=== PATIENT | female | born 1980 | race Caucasian/White ===

== ENCOUNTER 2016-07-12 12:13 | Emergency (ER) | payer SELFPAY ==
[~2016-07-12] VITALS: Ht 160 cm; Wt 82.0 kg
[2016-07-12 12:21] VITALS: BP 105/81; PULSE 85; RESP 16; TEMP 97.8; O2SAT 99
--- NOTE | 2016-07-12 12:39 | PD ---
HPI Chief Complaint: Flank/Kidney Pain Time Seen by Provider: 12:25 Travel History International Travel<30 days: No Contact w/Intl Traveler<30days: No Traveled to known affect area: No History of Present Illness HPI The patient was seen and examined in the presence of the nurse. She complains of right flank pain. It radiates toward the right groin. Duration one week. She has had some dysuria. No documented fever. She took an oral thermometer yesterday which was 99.3. No vomiting or diarrhea. No alleviating factors. No injury. PFSH Past Medical History ?: Not LMP: JUNE 28 Social History Alcohol Use: No Tobacco Use: No Substance Use: No Allergies-Medications (Allergen,Severity, Reaction): Coded Allergies: Penicillin (Verified Allergy, Unknown, 07/12/16) Reported Meds & Prescriptions Reported Meds & Active Scripts Active No Active Prescriptions or Reported Medications Review of Systems General / Constitutional: No: Fever Eyes: No: Visual changes HENT: No: Headaches Cardiovascular: No: Chest Pain or Discomfort Respiratory: No: Shortness of Breath Gastrointestinal: No: Diarrhea Genitourinary: Positive: Dysuria, Flank Pain Musculoskeletal: No: Pain Skin: No Rash Neurologic: No: Weakness Psychiatric: No: Depression Endocrine: No: Polydipsia Hematologic/Lymphatic: No: Easy Bruising Physical Exam Narrative GENERAL: Well-nourished, well-developed patient with right flank pain. SKIN: Focused skin assessment reveals no rash and nodules. Skin is Warm and dry. HEAD: Atraumatic. Normocephalic. EYES: Pupils equal and round. No scleral icterus. No injection or drainage. ENT: No nasal bleeding or discharge. Mucous membranes pink and moist. NECK: Trachea midline. No JVD. CARDIOVASCULAR: Regular rate and rhythm. No murmur appreciated. RESPIRATORY: No accessory muscle use. Clear to auscultation. Breath sounds equal bilaterally. GASTROINTESTINAL: Abdomen soft, non-tender, nondistended. Hepatic and splenic margins not palpable. MUSCULOSKELETAL: No obvious deformities. No clubbing. No cyanosis. No edema. Examination of back reveals markedly tenderness over the right CVA region to light touch. No midline tenderness. No objective findings NEUROLOGICAL: Awake and alert. No obvious cranial nerve deficits. Motor grossly within normal limits. Normal speech. PSYCHIATRIC: Appropriate mood and affect; insight and judgment normal. Data Data Last Documented VS Vital Signs Date Time Temp Pulse Resp B/P Pulse Ox O2 Delivery O2 Flow Rate FiO2 07/12/16 14:50 64 16 118/83 100 Room Air 07/12/16 12:21 97.8 Orders Urinalysis - C+S If Indicated (07/12/16 12:33) Ed Urine Pregnancytest Poc (07/12/16 12:33) Urine Culture (07/12/16 12:40) Ct Abd/Pel W/O Iv Contrast (07/12/16 ) Ondansetron Inj (Zofran Inj) (07/12/16 14:15) Morphine Inj (Morphine Inj) (07/12/16 14:15) Labs Laboratory Tests Test 07/12/16 12:40 Urine Collection Type CLEAN CATCH Urine Color YELLOW Urine Turbidity SLIGHT Urine pH 5.5 Urine Specific [place] 1.026 Urine Protein NEG mg/dL Urine Glucose (UA) 1000 OR GREATER mg/dL Urine Ketones NEG mg/dL Urine Occult Blood NEG Urine Nitrite POS Urine Bilirubin NEG Urine Leukocyte Esterase NEG Urine WBC 0-2 /hpf Urine Squamous Epithelial > 8 /hpf Cells Urine Bacteria MANY /hpf Microscopic Urinalysis Comment CULTURE INDICATED Urine Collection Time 12:40 [facility] Medical Decision Making Medical Screen Exam Complete: Yes Emergency Medical Condition: Yes Medical Record Reviewed: Yes Differential Diagnosis Pyelonephritis, sciatica, lumbar strain Narrative Course I have reviewed the patient's electronic medical record. She has never been here before she recently moved from [place] I offered her pain medication but she declines Urinalysis not suspicious for significant infection Urine is negative CT of abdomen pelvis is noted. 2 mm nonobstructing stone is an incidental finding. She is constipated but no emergent findings Reviewed with the patient. Recommending primary care follow-up to start Diagnosis Primary Impression: Acute right flank pain Additional Instructions: The patient was advised to follow up with their physician and return if they worsen. Med/Other Pt SpecificInfo: Other Scripts No Active Prescriptions or Reported Meds Disposition: 01 DISCHARGE HOME Condition: Stable Adolfo Membreno MD July 12, 2016 12:39
[2016-07-12 12:45] LABS: BLOOD, URINE NEG (NEG); KETONE, URINE NEG (NEG); PH, URINE 5.5 (5.0-8.5)
[2016-07-12 12:53] LABS: GLUCOSE,URINE 1000 OR GREATER mg/dL (NEG); METHOD OF COLLECTION CLEAN CATCH; NITRITE,URINE POS (NEG); SQUAMOUS EPITHELIAL CELL URINE > 8 /hpf (0-5); URINE COLOR YELLOW (YELLW/STRAW); WBC, URINE 0-2 /hpf (0-5)
[2016-07-12 12:54] LABS: BACTERIA, URINE MANY /hpf; COMMENT (UR) CULTURE INDICATED; CULTURE IF INDICATED CULTURE INDICATED
[2016-07-12 13:45] VITALS: BP 104/67; PULSE 68; RESP 16; O2SAT 99
[2016-07-12] MEDS ORDERED: ONDANSETRON HCL 4 MG/2 ML VIAL IM ONE (14:15)
[2016-07-12] MEDS ORDERED: MORPHINE SULFATE 4 MG/ML INJ IM ONE (14:15)
[2016-07-12 14:50] VITALS: BP 118/83; PULSE 64; RESP 16; O2SAT 100
--- NOTE | 2016-07-12 16:09 | RADHPO ---
EXAM DATE/TIME: 07/12/2016 14:22 [facility] COMPARISON: No previous studies available for comparison. INDICATIONS : Right flank pain. ORAL CONTRAST: No oral contrast ingested. RADIATION DOSE: 19.14 CTDIvol (mGy) MEDICAL HISTORY : None SURGICAL HISTORY : Appendectomy. Cholecystectomy. section.Bladder repair. ENCOUNTER: Initial ACUITY: 1 week PAIN SCALE: 7/10 LOCATION: Right flank TECHNIQUE: Volumetric scanning of the abdomen and pelvis was performed. Using automated exposure control and ad justment of the mA and/or kV according to patient size, radiation dose was kept as low as reasonably achievable to obtain optimal diagnostic quality images. FINDINGS: Examination of the lung bases demonstrates no abnormality. No pleural fluid is identified. No pulmona ry nodules are present. The liver and spleen are normal in size and no focal defects are identified. The gallbladder is absent. The pancreas demonstrates normal contour without evidence of mass or ducta l dilatation. The adrenal glands are unremarkable. The left kidney is unremarkable. There is cortical scarring in the right kidney with loss of the anterior cortex and a 2 mm nonobstructing stone in low er pole. Examination of the pelvis demonstrates no evidence of free fluid or pelvic mass. No abnormally enlarg ed inguinal or retroperitoneal lymph nodes are present. The bladder is unremarkable. There is a large amount of fecal material throughout the colon consistent with constipation. CONCLUSION: 1. No evidence of acute abdominal or pelvic process. No masses are identified. 2. Constipation 3. Nonobstructing 2 mm right renal stone Neri Hodge MD on July 12, 2016 at 15:59 Board Certified Radiologist. This report was verified electronically.
== END 2016-07-12 16:35 | disposition home or self-care (01) ==
LOC: PHED 12:13
DX: R10.9 Unspecified abdominal pain (principal); B96.20 Unspecified Escherichia coli [E. coli] as the cause of diseases classified elsewhere; Z88.0 Allergy status to penicillin
CPT/HCPCS: 74176; 81001; 84703; 87077; 87086; 87186; 96372; 99284; J2270; J2405

== ENCOUNTER 2016-08-14 06:48 | Inpatient (IN) | payer SELFPAY ==
[~2016-08-14] VITALS: Ht 167.6 cm; Wt 84.7 kg
[2016-08-14] VITALS (15 sets, daily range): BP systolic 98–123; BP diastolic 59–81; PULSE 74–106; RESP 18–27; TEMP 97.1–98.9; O2SAT 96–100
[2016-08-14] MEDS ORDERED: ONDANSETRON HCL 4 MG/2 ML VIAL IV PUSH ONE (07:00)
[2016-08-14] MEDS ORDERED: SODIUM CHLORIDE 0.9% FLUSH 5 ML FLUSH IV FLUSH PRN (07:00)
[2016-08-14] MEDS: SODIUM CHLOR 0.9% 1000 ML INJ 1,000 ML IV SCH ×2 (07:12→07:14)
[2016-08-14 07:18] LABS: BLOOD GAS BASE EXCESS -5.5 mmol/L (-2-2); BLOOD GAS CARBOXYHEMOGLOBIN 4.3 % (0-4); BLOOD GAS HCO3 19 mmol/L (22-26); BLOOD GAS METHEMOGLOBIN 0.9 % (0-2); BLOOD GAS O2 HGB SATURATION 92 % (90-100); BLOOD GAS OXYGEN CONTENT 17.2 Vol % (12.0-20.0); BLOOD GAS PCO2 35 mmHg (38-42); BLOOD GAS PO2 100 mmHG (61-120); BLOOD GAS TOTAL HGB 13.2 G/DL (12.0-16.0); CRITICAL VALUE NO; DRAW SITE RT RADIAL; LITER FLOW 3 L/M; NUMBER OF ARTERIAL PUNCTURES 1; OXYGEN DEVICE NASAL CANNULA; STAT YES; TEMP CORR TO 98.6; ULNAR PULSE PRESENT
[2016-08-14 07:28] LABS: AUTOMATED NEUTROPHIL # 5.5 TH/MM3 (1.8-7.7); BASOPHIL # 0.1 TH/MM3 (0-0.2); BASOPHIL % 1.3 % (0.0-2.0); EOSINOPHIL # 0.3 TH/MM3 (0-0.4); HEMATOCRIT 39.3 % (35.0-46.0); HEMO FLAGS DIFF FINAL; LYMPH % 31.5 % (9.0-44.0); MEAN CELL VOLUME 89.6 FL (80.0-100.0); MEAN CORPUSCULAR HEMOGLOBIN 31.3 PG (27.0-34.0); MEAN CORPUSCULAR HGB CONC 34.9 % (32.0-36.0); NEUT % 57.2 % (16.0-70.0); PLATELET COUNT 246 TH/MM3 (150-450); RED BLOOD COUNT 4.38 MIL/MM3 (4.00-5.30); RED CELL DISTRIBUTION WIDTH 13.2 % (11.6-17.2); WHITE BLOOD COUNT 9.7 TH/MM3 (4.0-11.0)
--- NOTE | 2016-08-14 07:38 | PD ---
HPI Chief Complaint: altered mental status Time Seen by Provider: 06:58 Travel History International Travel<30 days: No (UNABLE TO ASSESS) Contact w/Intl Traveler<30days: No (UNABLE TO ASSESS) Traveled to known affect area: No (UNABLE TO ASSESS) History of Present Illness HPI The patient arrives by EMS. She is 36 years old. Per EMS report she walked into a fitness center and told the space systems operations manager that she didn't know where she was. EMS was activated and upon their arrival the patient became unresponsive. Her blood sugar was 103 and her vital signs were normal. In the ER the patient does not answer questions limiting the history of present illness. PFSH Past Medical History Patient Takes Glucophage: No Diminished Hearing: No Immunizations Current: No Tetanus Vaccination: Unknown Influenza Vaccination: No ?: Unknown : 3 Para: 3 Past Surgical History Appendectomy: Yes Section: Yes (X 3) Cholecystectomy: Yes Genitourinary Surgery: Yes (BLADDER REPAIR) Social History Alcohol Use: No (UNKNOWN) Tobacco Use: No Substance Use: No (UNKNOWN ) Allergies-Medications (Allergen,Severity, Reaction): Coded Allergies: Penicillin (Verified Allergy, Unknown, 08/14/16) *MDRO Multi-Drug Resistant Organism (Verified Adverse Reaction, Unknown, ) ESBL E.Coli (urine)-07/12/16 Reported Meds & Prescriptions Reported Meds & Active Scripts Active Review of Systems ROS Limitations: Clinical Condition Physical Exam Narrative GENERAL: 36 yo F, WNWD, pt does open eyes in response to voice or noxious stimulus, pt does not speak, upon letting go of her hand a few inches above her forehead she is able to redirect the hand away from her face SKIN: Warm and dry. HEAD: Atraumatic. Normocephalic. EYES: Pupils are equally reactive to light. With passive opening of the upper eyelids the patient gazes from left to right and up and down. ENT: No nasal bleeding or discharge. Mucous membranes pink and moist. NECK: Trachea midline. No JVD. CARDIOVASCULAR: Regular rate and rhythm. RESPIRATORY: No accessory muscle use. Clear to auscultation. Breath sounds equal bilaterally. GASTROINTESTINAL: Abdomen soft, non-tender, nondistended. Hepatic and splenic margins not palpable. MUSCULOSKELETAL: Extremities without clubbing, cyanosis, or edema. No obvious deformities. NEUROLOGICAL: Non-verbal. Pt does not speak. Pt voluntarily disallows her hand from falling upon her forehead. The eyes have a conjugate gaze and upon passive opening of the gaze the patients gaze shifts from side to side and up and down. Pupils equal and reactive to light. PSYCHIATRIC: Unable to assess. Data Data Last Documented VS Vital Signs Date Time Temp Pulse Resp B/P Pulse Ox O2 Delivery O2 Flow Rate FiO2 08/14/16 09:30 82 21 115/62 99 Nasal Cannula 3 08/14/16 06:52 98.9 VS reviewed Orders Electrocardiogram (08/14/16 06:58) Ammonia (08/14/16 06:58) Complete Blood Count With Diff (08/14/16 06:58) Comprehensive Metabolic Panel (08/14/16 06:58) Thyroid Stimulating Hormone (08/14/16 06:58) Urinalysis - C+S If Indicated (08/14/16 06:58) Lactic Acid Sepsis Protocol (08/14/16 06:58) Arterial Blood Gas (Abg) (08/14/16 06:58) Blood Culture (08/14/16 06:58) Chest, Single Ap (08/14/16 06:58) Ct Brain W/O Iv Contrast(Rout) (08/14/16 06:58) Blood Glucose (08/14/16 06:58) Ecg Monitoring (08/14/16 06:58) Iv Access Insert/Monitor (08/14/16 06:58) Cath For Specimen (08/14/16 06:58) Oximetry (08/14/16 06:58) Oxygen Administration (08/14/16 06:58) Sodium Chloride 0.9% Flush (Ns Flush) (08/14/16 07:00) Sodium Chlor 0.9% 1000 Ml Inj (Ns 1000 M (08/14/16 06:58) Ed Urine Pregnancytest Poc (08/14/16 06:58) Drug Screen, Random Urine (08/14/16 06:58) Alcohol (Ethanol) (08/14/16 06:58) Salicylates (Aspirin) (08/14/16 06:58) Tylenol (Acetaminophen) (08/14/16 06:58) Ondansetron Inj (Zofran Inj) (08/14/16 07:00) Urine Culture (08/14/16 07:05) Ceftriaxone Inj (Rocephin Inj) (08/14/16 08:00) Potassium Chlor 20 Meq Premix (Kcl 20 Me (08/14/16 08:00) Admit Order (Ed Use Only) (08/14/16 10:21) Labs Laboratory Tests Test 08/14/16 08/14/16 07:00 07:05 Lactic Acid Level 2.1 mmol/L Ammonia 34 MCMOL/L White Blood Count 9.7 TH/MM3 Red Blood Count 4.38 MIL/MM3 Hemoglobin 13.7 GM/DL Hematocrit 39.3 % Mean Corpuscular Volume 89.6 FL Mean Corpuscular Hemoglobin 31.3 PG Mean Corpuscular Hemoglobin 34.9 % Concent Red Cell Distribution Width 13.2 % Platelet Count 246 TH/MM3 Mean Platelet Volume 9.3 FL Neutrophils (%) (Auto) 57.2 % Lymphocytes (%) (Auto) 31.5 % Monocytes (%) (Auto) 7.0 % Eosinophils (%) (Auto) 3.0 % Basophils (%) (Auto) 1.3 % Neutrophils # (Auto) 5.5 TH/MM3 Lymphocytes # (Auto) 3.0 TH/MM3 Monocytes # (Auto) 0.7 TH/MM3 Eosinophils # (Auto) 0.3 TH/MM3 Basophils # (Auto) 0.1 TH/MM3 CBC Comment DIFF FINAL Differential Comment Urine Color YELLOW Urine Turbidity CLOUDY Urine pH 5.5 Urine Specific [place] 1.014 Urine Protein NEG mg/dL Urine Glucose (UA) NEG mg/dL Urine Ketones NEG mg/dL Urine Occult Blood MOD Urine Nitrite POS Urine Bilirubin NEG Urine Urobilinogen LESS THAN 2.0 MG/DL Urine Leukocyte Esterase NEG Urine RBC 24 /hpf Urine WBC 5 /hpf Urine Squamous Epithelial 10 /hpf Cells Urine Bacteria MANY /hpf Urine Hyaline Casts 1 /lpf Urine Mucus FEW /lpf Microscopic Urinalysis Comment CATH-CULTURE IND Blood Gas Puncture Site RT RADIAL Blood Gas Patient Temperature 98.6 Blood Gas HCO3 19 mmol/L Blood Gas Base Excess -5.5 mmol/L Blood Gas Oxygen Saturation 92 % Arterial Blood pH 7.36 Arterial Blood Partial 35 mmHg Pressure CO2 Arterial Blood Partial 100 mmHG Pressure O2 Arterial Blood Oxygen Content 17.2 Vol % Arterial Blood 4.3 % Carboxyhemoglobin Arterial Blood Methemoglobin 0.9 % Blood Gas Hemoglobin 13.2 G/DL Oxygen Delivery Device NASAL CANNULA Blood Gas Liter Flow 3 L/M Sodium Level 141 MEQ/L Potassium Level 3.1 MEQ/L Chloride Level 108 MEQ/L Carbon Dioxide Level 19.7 MEQ/L Anion Gap 13 MEQ/L Blood Urea Nitrogen 17 MG/DL Creatinine 1.02 MG/DL Estimat Glomerular Filtration 61 ML/MIN Rate Random Glucose 85 MG/DL Calcium Level 8.3 MG/DL Total Bilirubin 0.3 MG/DL Aspartate Amino Transf 18 U/L (AST/SGOT) Alanine Aminotransferase 26 U/L (ALT/SGPT) Alkaline Phosphatase 95 U/L Total Protein 7.8 GM/DL Albumin 3.7 GM/DL Thyroid Stimulating Hormone 1.860 uIU/ML 3rd Gen Salicylates Level 2.1 MG/DL Urine Opiates Screen NEG Acetaminophen Level LESS THAN 2.0 MCG/ML Urine Barbiturates Screen NEG Urine Amphetamines Screen POS Urine Benzodiazepines Screen NEG Urine Cocaine Screen POS Urine Cannabinoids Screen POS Ethyl Alcohol Level 173 MG/DL MDM Medical Decision Making Medical Screen Exam Complete: Yes Emergency Medical Condition: Yes Differential Diagnosis Stroke, alcohol intoxication, illicit drug abuse, prescription drug abuse, hypoglycemia, electrolyte imbalance, infection/meningitis Narrative Course CBC & BMP Diagram 08/14/16 07:05 ABG 7.36/35/19 ABG PO2 103 L nasal cannula base excess -5.5 Lactic acid 2.1 Ammonia 34 APAP < 2.0 Salicylates 2.1 Urine Tox: positive for amphetamines/cocaine/cannabinoids LFTs essentially normal UA: UTI present CXR: NACPD ECG: sinus rate 93, normal axis, normal intervals, low QRS voltage in precordial leads As we can see the workup is positive for amphetamines, cocaine and cannabinoids and alcohol all of which together can account for the patient's clinical status. Reassessment at 1010AM gag reflex intact, VS normal. IVF started. Rocephin given. The patient will be kept for monitoring. Discussed with Dr. Simmons. Diagnosis Primary Impression: Alcohol intoxication Qualified Code: F10.929 - Alcohol intoxication, with unspecified complication Additional Impressions: Intoxication by drug Qualified Code: F19.929 - Intoxication by drug, with unspecified complication Nutrition, metabolism, and development symptoms UTI (urinary tract infection) Qualified Code: N30.00 - Acute cystitis without hematuria Admitting Information Admitting Physician Requests: Admit Jaren Feldman MD 19, 2017 07:38
[2016-08-14 07:41] LABS: BACTERIA, URINE MANY /hpf; BLOOD, URINE MOD (NEG); COMMENT (UR) CATH-CULTURE IND; CULTURE IF INDICATED CATH CULTURE IND; GLUCOSE,URINE NEG (NEG); HYALINE CAST, URINE 1 /lpf (RARE); KETONE, URINE NEG (NEG); MUCUS URINE FEW /lpf (OCC); PH, URINE 5.5 (5.0-8.5); SQUAMOUS EPITHELIAL CELL URINE 10 /hpf (0-5); URINE COLOR YELLOW (YELLW/STRAW)
[2016-08-14 07:42] LABS: ANION GAP 13 MEQ/L (5-15); AST (GOT) 18 U/L (15-37); BICARBONATE 19.7 MEQ/L (21.0-32.0); BLOOD UREA NITROGEN 17 MG/DL (7-18); CHLORIDE 108 MEQ/L (98-107); GLOMERULAR FILTRATION RATE 61 ML/MIN (>89); NITRITE,URINE POS (NEG); POTASSIUM 3.1 MEQ/L (3.5-5.1); SODIUM (NA) 141 MEQ/L (136-145)
[2016-08-14 07:43] LABS: ACETAMINOPHEN LESS THAN 2.0 MCG/ML (10.0-30.0); ALT (GPT) 26 U/L (10-53)
[2016-08-14 07:53] LABS: ALKALINE PHOSPHATASE 95 U/L (45-117); AMPHETAMINE, URINE POS (NEG); BARBITURATES, URINE NEG (NEG); COCAINE, URINE POS (NEG); TOTAL BILIRUBIN ADULT 0.3 MG/DL (0.2-1.0)
[2016-08-14] MEDS ORDERED: POTASSIUM CHLOR 20 MEQ PREMIX 100 ML IV ONE (08:00)
[2016-08-14] MEDS ORDERED: cefTRIAXone INJ 1,000 MG in SODIUM CHLORIDE 0.9% INJ 100 ML IV ONE (08:00)
--- NOTE | 2016-08-14 08:04 | RADRPT ---
EXAM DATE/TIME: 08/14/2016 07:35 [facility] COMPARISON: No previous studies available for comparison. INDICATIONS : Shortness of breath. MEDICAL HISTORY : None. SURGICAL HISTORY : None. ENCOUNTER: Initial ACUITY: 1 day PAIN SCORE: Non-responsive. LOCATION: Bilateral chest FINDINGS: Lungs are hypoaerated without significant focal pleural or parenchymal opacities. Cardiomediastinal c ontours are within normal limits given portable technique and low lung volumes. Bony thorax is grossl y intact. CONCLUSION: 1. Low lung volumes without acute cardiopulmonary disease. Ridge Lawson MD on August 14, 2016 at 8:01 Board Certified Radiologist. This report was verified electronically.
--- NOTE | 2016-08-14 08:29 | RADRPT ---
EXAM DATE/TIME: 08/14/2016 08:13 [facility] COMPARISON: No previous studies available for comparison. INDICATIONS : Altered mental status/ syncopal episode. RADIATION DOSE: 56.38 CTDIvol (mGy) MEDICAL HISTORY : Non-responsive. SURGICAL HISTORY : Non-responsive. ENCOUNTER: Initial ACUITY: 1 day PAIN SCALE: 0/10 LOCATION: cranial TECHNIQUE: Multiple contiguous axial images were obtained of the head. Using automated exposure control and adj ustment of the mA and/or kV according to patient size, radiation dose was kept as low as reasonably a chievable to obtain optimal diagnostic quality images. FINDINGS: CEREBRUM: The ventricles are normal for age. No evidence of midline shift, mass lesion, hemorrhage or acute in farction. No extra-axial fluid collections are seen. POSTERIOR FOSSA: The cerebellum and brainstem are intact. The 4th ventricle is midline. The cerebellopontine angle i s unremarkable. EXTRACRANIAL: The visualized portion of the orbits is intact. SKULL: The calvaria is intact. No evidence of skull fracture. CONCLUSION: Negative for an acute process. Gee Bourgeois MD FACR on August 14, 2016 at 8:27 Board Certified Radiologist. This report was verified electronically.
[2016-08-14 09:14] LABS: LACTIC ACID GHOST NOT REPORTABLE
[2016-08-14] MEDS ORDERED: ONDANSETRON HCL 4 MG/2 ML VIAL IV PUSH PRN (10:45)
[2016-08-14] MEDS ORDERED: LORazepam 2 MG TAB PO PRN (10:45)
[2016-08-14] MEDS ORDERED: FLUMAZENIL 0.5 MG/5 ML VIAL IV PUSH PRN (10:45)
[2016-08-14] MEDS ORDERED: LOPERAMIDE HCL 2 MG CAP PO PRN (10:45)
[2016-08-14] MEDS ORDERED: HALOPERIDOL LACTATE 5 MG/ML AMP IM PRN (10:45)
[2016-08-14] MEDS ORDERED: LORazepam 2 MG/ML VIAL IV PUSH PRN (10:45)
[2016-08-14] MEDS ORDERED: SODIUM CHLORIDE 0.9% FLUSH 10 ML FLUSH IV FLUSH PRN (10:45)
[2016-08-14] MEDS ORDERED: BENZONATATE 100 MG CAP PO PRN (10:45)
[2016-08-14] MEDS ORDERED: RESP: ALBUTEROL 2.5 MG/3 ML NEB (PRN) INH (10:45)
[2016-08-14] MEDS ORDERED: DOCUSATE SODIUM 50 MG/SENNA 8.6 MG TAB PO PRN (10:45)
--- NOTE | 2016-08-14 10:45 | HHI.HP ---
HPI Service Family Medicine Primary Care Physician No Primary Care Physician Admission Diagnosis PSA, EtOH Diagnoses: International Travel<30 Days: No (UNABLE TO ASSESS) Contact w/Intl Traveler<30days: No (UNABLE TO ASSESS) Known Affected Area: No (UNABLE TO ASSESS) History of Present Illness Per chart review, Ms. Drake is a 36 y/o F with no significant PMHx per chart review presenting via EMS for AMS. Per EMS, patient walked into a fitness center this morning and did not know where she was. The fitness center staff called EMS and was unresponsive on arrival. At the scene her BG was 103 with normal vital signs. Upon evaluation of both the ER staff and the admitting medical team she is unresponsive verbal, tactile, and painful stimulation. Her vital signs are currently WNL. Of note on laboratory evaluation patient found to be positive for amphetamines, cocaine, and marijuana with an alcohol of 173. She also appears to have a continued UTI from a previous ER visit for flank pain. Prior culture positive for ESBL E. coli on 07/13/15 and received only one dose of Ceftriaxone. (Neil Tejada MD R1) Review of Systems ROS Limitations: Intoxication, Altered Mental Status, Unresponsive (Neil Tejada MD R1) Past Family Social History Past Medical History No significant PMHx per chart review Past Surgical History Per chart review Appendectomy x3 Cholecystectomy Bladder repair (Neil Tejada MD R1) Allergies: Coded Allergies: Penicillin (Verified Allergy, Unknown, Rash, 08/14/16) Has tolerated Keflex in the past *MDRO Multi-Drug Resistant Organism (Verified Adverse Reaction, Unknown, ) ESBL E.Coli (urine)-07/12/16 Family History No significant FMHx per chart review Social History Unable to be obtained due to clinical status Positive drug scree on this admission for marijuana, cocaine, and amphetamines. Alcohol level of 173 on admission. (Neil Tejada MD R1) Physical Exam Vital Signs Vital Signs Date Time Temp Pulse Resp B/P Pulse Ox O2 Delivery O2 Flow Rate FiO2 08/14/16 09:30 82 21 115/62 99 Nasal Cannula 3 08/14/16 08:30 86 22 98 Nasal Cannula 3 08/14/16 07:30 83 24 114/73 99 Nasal Cannula 3 08/14/16 07:10 25 98 Nasal Cannula 3 08/14/16 07:02 100 Nasal Cannula 3 08/14/16 07:01 18 98 Nasal Cannula 3 08/14/16 06:52 98.9 106 20 123/81 98 Physical Exam GENERAL: Well-nourished, well-developed 36-year-old female lying in bed not responding to verbal, tactile, or painful stimulation. SKIN: Warm and dry. No rash. Multiple tattoos. HEENT: Atraumatic, normocephalic. Upon passively opening eyelids PERRL. Upon opening eyelids, patient gazes upward. Mucous membranes dry. Gag reflex intact. Trachea midline with no JVD or LAD appreciated. CARDIOVASCULAR: Regular rate and rhythm without obvious murmurs, gallops, or rubs. RESPIRATORY: Clear to auscultation bilaterally with with shallow air movement. No CRW appreciated. No increased work of breathing. GASTROINTESTINAL: Abdomen soft, non-tender, nondistended with positive bowel sounds. No hepatosplenomegaly appreciated. MUSCULOSKELETAL: No cyanosis or edema. No obvious deformities. NEURO/PSYCH: Patient is unresponsive to tactile, verbal, or painful stimulation. PERRL. On hand drop, she moves hand so it will not hit her face. Laboratory Laboratory Tests Test 08/14/16 08/14/16 07:00 07:05 Lactic Acid Level 2.1 Ammonia 34 White Blood Count 9.7 Red Blood Count 4.38 Hemoglobin 13.7 Hematocrit 39.3 Mean Corpuscular Volume 89.6 Mean Corpuscular Hemoglobin 31.3 Mean Corpuscular Hemoglobin 34.9 Concent Red Cell Distribution Width 13.2 Platelet Count 246 Mean Platelet Volume 9.3 Neutrophils (%) (Auto) 57.2 Lymphocytes (%) (Auto) 31.5 Monocytes (%) (Auto) 7.0 Eosinophils (%) (Auto) 3.0 Basophils (%) (Auto) 1.3 Neutrophils # (Auto) 5.5 Lymphocytes # (Auto) 3.0 Monocytes # (Auto) 0.7 Eosinophils # (Auto) 0.3 Basophils # (Auto) 0.1 CBC Comment DIFF FINAL Differential Comment Urine Color YELLOW Urine Turbidity CLOUDY Urine pH 5.5 Urine Specific [place] 1.014 Urine Protein NEG Urine Glucose (UA) NEG Urine Ketones NEG Urine Occult Blood MOD Urine Nitrite POS Urine Bilirubin NEG Urine Urobilinogen LESS THAN 2.0 Urine Leukocyte Esterase NEG Urine RBC 24 Urine WBC 5 Urine Squamous Epithelial 10 Cells Urine Bacteria MANY Urine Hyaline Casts 1 Urine Mucus FEW Microscopic Urinalysis Comment CATH-CULTURE IND Blood Gas Puncture Site RT RADIAL Blood Gas Patient Temperature 98.6 Blood Gas HCO3 19 Blood Gas Base Excess -5.5 Blood Gas Oxygen Saturation 92 Arterial Blood pH 7.36 Arterial Blood Partial 35 Pressure CO2 Arterial Blood Partial 100 Pressure O2 Arterial Blood Oxygen Content 17.2 Arterial Blood 4.3 Carboxyhemoglobin Arterial Blood Methemoglobin 0.9 Blood Gas Hemoglobin 13.2 Oxygen Delivery Device NASAL CANNULA Blood Gas Liter Flow 3 Sodium Level 141 Potassium Level 3.1 Chloride Level 108 Carbon Dioxide Level 19.7 Anion Gap 13 Blood Urea Nitrogen 17 Creatinine 1.02 Estimat Glomerular Filtration 61 Rate Random Glucose 85 Calcium Level 8.3 Total Bilirubin 0.3 Aspartate Amino Transf 18 (AST/SGOT) Alanine Aminotransferase 26 (ALT/SGPT) Alkaline Phosphatase 95 Total Protein 7.8 Albumin 3.7 Thyroid Stimulating Hormone 1.860 3rd Gen Salicylates Level 2.1 Urine Opiates Screen NEG Acetaminophen Level LESS THAN 2.0 Urine Barbiturates Screen NEG Urine Amphetamines Screen POS Urine Benzodiazepines Screen NEG Urine Cocaine Screen POS Urine Cannabinoids Screen POS Ethyl Alcohol Level 173 Date/Time Procedure Status Source Growth 08/14/16 07:05 Urine Culture Received Urine Catheterized Urine Pending 08/14/16 06:50 Aerobic Blood Culture Received Blood Peripheral Pending 08/14/16 06:50 Anaerobic Blood Culture Received Blood Peripheral Pending (Neil Tejada MD R1) Result Diagram: 08/14/16 0705 08/14/16 0705 Imaging Last [address] 08/14/16 0658 Signed Impressions: Service Date/Time: Sunday, August 14, 2016 08:13 - CONCLUSION: Negative for an acute process. Gee Bourgeois MD FACR Chest X-Ray 08/14/16 0658 Signed Impressions: Service Date/Time: Sunday, August 14, 2016 07:35 - CONCLUSION: 1. Low lung volumes without acute cardiopulmonary disease. Ridge Lawson MD (Neil Tejada MD R1) Assessment and Plan Assessment and Plan Ms. Drake is a 36 y/o F with no significant PMHx per chart review presenting via EMS for AMS secondary to alcohol and polysubstance abuse. Code Status FULL Discussed Condition With Dr. Feldman, ER physician Dr. Simmons (Neil Tejada MD R1) Attending Attestation Patient seen and examined. Case reviewed and discussed with the resident team. Agree with plan of care as discussed with me and documented in the resident note. pt seen on day of admission in her hospital room. She was more alert than in the ED and was able to begin taking fluids though she still would not answer questions well. (Cheri Arizmendi MD) Problem List: (1) Intoxication by drug Status: Acute Plan: Patient admitted for AMS found to be positive for amphetamines, cocaine, and marijuana on UDS at admission. Currently she is unresponsive with stable vital signs -CT head: WNL -UDS: Positive for marijuana, cocaine, and amphetamines -Lactic acid: 2.1, repeat at 1200 -CK: Pending -Ammonia: 34 -Telemetry -Avoid Beta Blockers -Fall precautions -Seizure precautions -Neuro checks Q4H Medications: -NS at 140 with KCl (2) Alcohol intoxication Status: Acute Plan: Patient admitted for AMS found to have an alcohol level of 173 on admission. -CT head: WNL -Alcohol: 173 -Ammonia: 34 -CIWA protocol -Fall precautions -Seizure precautions -Neuro checks Q4H Medications: -IV rally pack -NS at 140 with KCl (3) UTI (urinary tract infection) Status: Acute Plan: Patient with UA concerning for UTI. On prior ER visit found to have untreated E. coli ESBL infection. Of note patient has penicillin allergy, reaction unable to be confirmed due to AMS. -UA: cloudy, moderate occult blood, positive nitrite, leukocyte esterase negative, 24 RBC, many bacteria, few mucus -UC: pending -Previous UC 07/12: ESBL E. coli sensitive to ertapenem, imipenem, gentamicin, zosyn, augmentin, and tobramycin Medications: -NS at 140 with KCl -Gentamicin 510mg QD (5mg/kg) -Infectious Disease consulted, appreciate recommendations (4) Nutrition, metabolism, and development symptoms Status: Acute Plan: Fluids: NS at 140 with KCl Electrolytes: Hypokalemic, replaced via IV as she is NPO currently Diet: NPO Prophylaxis: CIWA protocol, Albuterol PRN SOB, Tessalon PRN cough, Imodium PRN diarrhea, Pericolace PRN constipation, Hydroxyzine PRN insomnia, Zofran PRN N/V , Clonidine PRN for BP >180/100 (5) No contraindication to deep vein thrombosis (DVT) prophylaxis Status: Acute Plan: -Lovenox 40mg QD -SCD/TEDs (Neil Tejada MD R1) Physician Certification 2 Midnight Certification Type: Admission for Inpatient Services Order for Inpatient Services The services are ordered in accordance with Medicare regulations or non- Medicare payer requirements, as applicable. In the case of services not specified as inpatient-only, they are appropriately provided as inpatient services in accordance with the 2-midnight benchmark. Estimated LOS (days): 3 3 days is the estimated time the patient will need to remain in the hospital, assuming treatment plan goals are met and no additional complications. Post-Hospital Plan: Home (Neil Tejada MD R1) Problem Qualifiers (1) Intoxication by drug: Qualified Code: F19.929 - Intoxication by drug, with unspecified complication (2) Alcohol intoxication: Qualified Code: F10.929 - Alcohol intoxication, with unspecified complication (3) UTI (urinary tract infection): Qualified Code: N30.00 - Acute cystitis without hematuria Neil Tejada MD R1 Aug 14, 2016 10:45 Cheri Arizmendi MD Aug 15, 2016 10:01
[2016-08-14] MEDS ORDERED: Gentamicin Consult Pharmacy 1 EA OTHER SCH (11:30)
[2016-08-14] MEDS ORDERED: cloNIDine HCL 0.1 MG TAB PO PRN (11:45)
[2016-08-14] MEDS: ENOXAPARIN SODIUM 40 MG/0.4 ML SYRINGE SQ SCH (12:58)
[2016-08-14] MEDS: THIAMINE INJ 100 MG in SODIUM CHLORIDE 0.9% INJ 100 ML IV SCH (12:58)
[2016-08-14] MEDS: NS + KCL 40 MEQ INJ 1,000 ML IV SCH ×2 (12:59→15:59)
[2016-08-14] MEDS: SODIUM CHLORIDE 0.9% FLUSH 10 ML FLUSH IV FLUSH SCH ×2 (12:59→21:06)
[2016-08-14] MEDS ORDERED: GENTAMICIN IV SCH (13:00)
[2016-08-14] MEDS ORDERED: SODIUM CHLORIDE 0.9% IV SCH (13:00)
[2016-08-14] MEDS: LORazepam 1 MG TAB PO PRN ×2 (13:44→17:04)
[2016-08-14 14:09] LABS: MAGNESIUM 2.2 MG/DL (1.5-2.5)
--- NOTE | 2016-08-14 14:20 | EKG ---
Date Performed: 08/14/2016 Time Performed: 07:22:01 PTAGE: 36 years EKG: Sinus rhythm LOW QRS VOLTAGE IN PRECORDIAL LEADS NONSPECIFIC T-WAVE ABNORMALITY BORDERLINE ECG NO PREVIOUS TRACING DOCTOR: Orlando Rivera Interpretating Date/Time 08/14/2016 14:15:55
[2016-08-14] MEDS: MULTIVITAMIN INJ 10 ML, FOLIC ACID INJ 1 MG in SODIUM CHLORID 0.9% 500 ML INJ 500 ML IV SCH (15:07)
[2016-08-14] MEDS ORDERED: ASP: Documented ESBL, MDR A baumannii or P. aeruginosa PRN (17:15)
[2016-08-14] MEDS ORDERED: MISCELLANEOUS PHARMACY INFORMATION XX PRN (17:15)
--- NOTE | 2016-08-14 17:18 | PD.CONS ---
History of Present Illness Service Infectious disease Consult Requested By Dr Desi Arizmendi Reason for Consult Evaluate patient with UTI Primary Care Physician No Primary Care Physician Diagnoses: History of Present Illness Patient seen and examined. Records reviewed. Patient is a 36-year-old female, brought into the hospital after she became unresponsive. She apparently walked in into the fitness center and she told the staff that she did not know where she was. They called EMS and upon arrival patient was unresponsive. Her vital signs were stable, and she was brought to the hospital for further evaluation and treatment. She did not have any fever. Her WBC is normal. Her drug screen was positive for alcohol, amphetamine, cocaine, and marijuana. Aspiration mental status has improved since she came up to the floor. However she is very fidgety. According to the patient she usually does alcohol and marijuana. Of note is that the patient visited the emergency room the middle of June complaining of right flank pain. Her urinalysis at that time was normal. CT of the abdomen and pelvis showed a right kidney stone which was non- obstructing. The urine culture eventually grew Escherichia coli ESBL positive organism. Patient continues to complain of pain in her right kidney. She had complaints of dysuria, and denies any nausea or any vomiting. Denies any diarrhea or any respiratory complaint. Infectious disease consultation has been requested to evaluate the patient. Review of Systems Constitutional: DENIES: Fever, Chills Eyes: DENIES: Eye pain Ears, nose, mouth, throat: DENIES: Nasal discharge, Oral lesions, Throat pain, Ear Pain Respiratory: DENIES: Cough, Shortness of breath Cardiovascular: COMPLAINS OF: Syncope, DENIES: Chest pain, Palpitations, Dyspnea on Exertion Gastrointestinal: DENIES: Abdominal pain, Diarrhea, Nausea, Vomiting, Difficulty Swallowing Genitourinary: COMPLAINS OF: Dysuria, DENIES: Hematuria Musculoskeletal: DENIES: Joint pain Integumentary: DENIES: Rash, Nipple discharge Neurologic: DENIES: Headache Psychiatric: COMPLAINS OF: Confusion Past Family Social History Allergies: Coded Allergies: Penicillin (Verified Allergy, Unknown, Rash, 08/14/16) Has tolerated Keflex in the past *MDRO Multi-Drug Resistant Organism (Verified Adverse Reaction, Unknown, ) ESBL E.Coli (urine)-07/12/16 Past Medical History No significant PMH Past Surgical History Appendectomy x3 Cholecystectomy Bladder repair Active Ordered Medications Albuterol Tessalon Clonidine Lovenox Gentamicin Haldol Atarax Imodium Ativan MVI, with fully casted Zofran Potassium Zaina-Colace Thiamine Family History Noncontributory Social History No smoking Heavy alcohol drinking Has illicit drug use, but denies using IV drugs Physical Exam Vital Signs Vital Signs Date Time Temp Pulse Resp B/P Pulse Ox O2 Delivery O2 Flow Rate FiO2 08/14/16 13:30 97.8 83 20 107/74 96 08/14/16 13:14 72 26 115/76 100 08/14/16 12:30 74 27 106/72 96 Nasal Cannula 2 08/14/16 11:30 78 21 104/66 96 Nasal Cannula 2 08/14/16 11:19 99 Nasal Cannula 3.00 08/14/16 10:30 84 18 105/68 98 Room Air 2 08/14/16 09:30 82 21 115/62 99 Nasal Cannula 3 08/14/16 08:30 86 22 98 Nasal Cannula 3 08/14/16 07:30 83 24 114/73 99 Nasal Cannula 3 08/14/16 07:10 25 98 Nasal Cannula 3 08/14/16 07:02 100 Nasal Cannula 3 08/14/16 07:01 18 98 Nasal Cannula 3 08/14/16 06:52 98.9 106 20 123/81 98 Physical Exam GENERAL: Patient is a well-nourished, well-developed CF, awake and alert, somewhat restless, not in respiratory distress. SKIN: Warm and dry. No generalized rash, no ecchymoses and no evidence of embolic lesions. HEAD: Atraumatic. Normocephalic. No temporal wasting, or tenderness. EYES: [place] conjunctiva. No petechia or hemorrhage. Pupils equal, round and reactive to light. Extraocular movements full and intact. No scleral icterus. No injection or drainage. EARS, NOSE AND THROAT: Nose without bleeding or purulent nasal discharge. No sinus tenderness. Mucous membranes pink and moist. No oral lesions noted. No exudate. No oral thrush. NECK: Trachea midline. Supple and not tender, no meningeal signs CARDIOVASCULAR: Regular rate and rhythm. No murmurs, rubs or gallops heard RESPIRATORY: Clear to auscultation. Breath sounds equal bilaterally. No rales , wheezing or rhonchi ABDOMEN: Soft, non-tender, nondistended. Bowel sounds present and normoactive. No guarding. No rebound. No organomegaly. BACK: Complains of tenderness R CVA EXTREMITIES: No clubbing, cyanosis, or edema.No joint effusion, has good ROM. No calf tenderness. Well perfused and warm. NEUROLOGICAL: Awake and alert. Cranial nerves grossly intact. Motor grossly within normal limits. PSYCHIATRIC: Restless in bed, fidgety LINE: No evidence of infection Laboratory Laboratory Tests Test 08/14/16 08/14/16 08/14/16 07:00 07:05 16:05 Lactic Acid Level 2.1 0.6 Ammonia 34 White Blood Count 9.7 Red Blood Count 4.38 Hemoglobin 13.7 Hematocrit 39.3 Mean Corpuscular Volume 89.6 Mean Corpuscular Hemoglobin 31.3 Mean Corpuscular Hemoglobin 34.9 Concent Red Cell Distribution Width 13.2 Platelet Count 246 Mean Platelet Volume 9.3 Neutrophils (%) (Auto) 57.2 Lymphocytes (%) (Auto) 31.5 Monocytes (%) (Auto) 7.0 Eosinophils (%) (Auto) 3.0 Basophils (%) (Auto) 1.3 Neutrophils # (Auto) 5.5 Lymphocytes # (Auto) 3.0 Monocytes # (Auto) 0.7 Eosinophils # (Auto) 0.3 Basophils # (Auto) 0.1 CBC Comment DIFF FINAL Differential Comment Urine Color YELLOW Urine Turbidity CLOUDY Urine pH 5.5 Urine Specific [place] 1.014 Urine Protein NEG Urine Glucose (UA) NEG Urine Ketones NEG Urine Occult Blood MOD Urine Nitrite POS Urine Bilirubin NEG Urine Urobilinogen LESS THAN 2.0 Urine Leukocyte Esterase NEG Urine RBC 24 Urine WBC 5 Urine Squamous Epithelial 10 Cells Urine Bacteria MANY Urine Hyaline Casts 1 Urine Mucus FEW Microscopic Urinalysis Comment CATH-CULTURE IND Blood Gas Puncture Site RT RADIAL Blood Gas Patient Temperature 98.6 Blood Gas HCO3 19 Blood Gas Base Excess -5.5 Blood Gas Oxygen Saturation 92 Arterial Blood pH 7.36 Arterial Blood Partial 35 Pressure CO2 Arterial Blood Partial 100 Pressure O2 Arterial Blood Oxygen Content 17.2 Arterial Blood 4.3 Carboxyhemoglobin Arterial Blood Methemoglobin 0.9 Blood Gas Hemoglobin 13.2 Oxygen Delivery Device NASAL CANNULA Blood Gas Liter Flow 3 Sodium Level 141 Potassium Level 3.1 Chloride Level 108 Carbon Dioxide Level 19.7 Anion Gap 13 Blood Urea Nitrogen 17 Creatinine 1.02 Estimat Glomerular Filtration 61 Rate Random Glucose 85 Calcium Level 8.3 Phosphorus Level 3.4 Magnesium Level 2.2 Total Bilirubin 0.3 Aspartate Amino Transf 18 (AST/SGOT) Alanine Aminotransferase 26 (ALT/SGPT) Alkaline Phosphatase 95 Total Creatine Kinase 151 Total Protein 7.8 Albumin 3.7 Thyroid Stimulating Hormone 1.860 3rd Gen Salicylates Level 2.1 Urine Opiates Screen NEG Acetaminophen Level LESS THAN 2.0 Urine Barbiturates Screen NEG Urine Amphetamines Screen POS Urine Benzodiazepines Screen NEG Urine Cocaine Screen POS Urine Cannabinoids Screen POS Ethyl Alcohol Level 173 Date/Time Procedure Status Source Growth 08/14/16 07:05 Urine Culture Received Urine Catheterized Urine Pending 08/14/16 06:50 Aerobic Blood Culture Received Blood Peripheral Pending 08/14/16 06:50 Anaerobic Blood Culture Received Blood Peripheral Pending Result Diagram: 08/14/1605 08/14/1605 Imaging RADIOLOGY STUDIES/FILMS REVIEWED Head CT 08/14/16657 Signed Impressions: Service Date/Time: Sunday, August 14, 2016 08:13 - CONCLUSION: Negative for an acute process. Gee Bourgeois MD FACR Chest X-Ray 08/14/16657 Signed Impressions: Service Date/Time: Sunday, August 14, 2016 07:35 - CONCLUSION: 1. Low lung volumes without acute cardiopulmonary disease. Ridge Lawson MD Assessment and Plan Assessment and Plan IMPRESSION Episode of unresponsiveness due to drugs (UDS + cocaine, meth, marijuana, and ETOH) UTI, has stone R from CT, ?moving, continues to pain R flank, and UA now abnormal with RBC and WBC Previous UC with E coli ESBL+ Allergy to PCN, rash, but ok withn Keflex Known polysubstance abuse RECOMMENDATION Renal US to check for hydro - may need repeat CT A/P Follow new C/S Start Invanz Monitor progress I will determine course of Abx once work-up completed I will follow along with you Thank you for this consultation Discussed Condition With D/W RN EXplained plan to the patient Beverly Angeles MD Aug 14, 2016 17:18
--- NOTE | 2016-08-14 19:54 | RADRPT ---
EXAM DATE/TIME: 08/14/2016 19:21 [facility] COMPARISON: CT ABDOMEN & PELVIS W/O CONTRAST, July 12, 2016, 14:22. INDICATIONS : Flank pain. MEDICAL HISTORY : Renal calculi. MDRO. SURGICAL HISTORY : section. Appendectomy. Cholecystectomy. ENCOUNTER: Initial ACUITY: 1 day PAIN SCORE: 7/10 LOCATION: Bilateral flank MEASUREMENTS: RIGHT KIDNEY: 10.2 x 4.3 x 3.8 cm LEFT KIDNEY: 14.1 x 5.4 x 6.8 cm FINDINGS: RIGHT KIDNEY: Renal cortex is normal in echotexture. However, there are multifocal areas of cortical thinning marianela cteristic of scar. The appearance is stable from the prior CT. No hydronephrosis, stone, or mass is i dentified. LEFT KIDNEY: Renal cortex is normal in thickness and echotexture. No hydronephrosis, stone, or mass. BLADDER: Within normal limits given the degree of distension. CONCLUSION: 1. Stable right renal scar. 2. No acute finding is identified. Byron Hudson MD on August 14, 2016 at 19:51 Board Certified Radiologist. This report was verified electronically.
[2016-08-14] MEDS: ERTAPENEM INJ 1,000 MG in SODIUM CHLORIDE 0.9% INJ 100 ML IV SCH (19:56)
[2016-08-14] MEDS: LORazepam 2 MG/ML VIAL IV PUSH PRN ×2 (21:05→22:53)
[2016-08-14 22:13] LABS: POTASSIUM 4.8 MEQ/L (3.5-5.1)
[2016-08-14 22:48] LABS: CALCIUM-PROTEIN CORRECTED 7.7 MG/DL (8.5-10.1)
[2016-08-15] VITALS (9 sets, daily range): BP systolic 91–143; BP diastolic 57–69; PULSE 75–92; RESP 18–22; TEMP 97.7–98.8; O2SAT 94–100
[2016-08-15] MEDS ORDERED: PHARMACY ORDERED LAB ONE
[2016-08-15] MEDS: hydrOXYzine HCL 50 MG TAB PO PRN (00:45)
[2016-08-15] MEDS: LORazepam 2 MG/ML VIAL IV PUSH PRN ×8 (00:45→17:26)
[2016-08-15] MEDS ORDERED: CALCIUM CARBONATE 500 MG CHEWABLE TAB CHEW ONE (01:15)
[2016-08-15] MEDS ORDERED: SODIUM BICARBONATE 325 MG TAB PO ONE (01:15)
[2016-08-15] MEDS: NS + KCL 40 MEQ INJ 1,000 ML IV SCH ×2 (04:00→09:05)
--- NOTE | 2016-08-15 05:29 | MG ---
cc: CANDY MELVIN MD Lab No: [id number] Date: 08/14/2016 Age: 36 Sex: F Race: EEG RECORD NUMBER [id number] DATE OF 1980 INDICATIONS FOR PROCEDURE A 36-year-old with history of polysubstance abuse, confusion. FINDINGS Well-formed posterior rhythm, 8-9 Hz, 20-40 microvolts, low amplitude beta in the frontal channels. Good anterior-posterior gradient. Frequent eye movement/blink artifact. Occasional small posterior sharp transients occurring sporadically during the recording. Attenuation of background slowing suggestive of drowsy state. Frequent alpha frequencies followed by attenuation and eye movement and blink. Reduced driving during photic stimulation. Occasional generalized tiny sharp transients. Single lead EKG shows sinus rhythm with some artifact present as well. INTERPRETATION Minimal encephalopathy, piculate-looking wave forms which may be secondary to psychoactive substances. No active seizures. Clinical correlation. Candy Melvin MD MG/SSB /9:19 PM /5:24 AM
[2016-08-15 06:39] LABS: AUTOMATED NEUTROPHIL # 5.9 TH/MM3 (1.8-7.7); BASOPHIL % 0.6 % (0.0-2.0); EOSINOPHIL # 0.1 TH/MM3 (0-0.4); EOSINOPHIL % 1.1 % (0.0-4.0); HEMATOCRIT 34.7 % (35.0-46.0); HEMO FLAGS DIFF FINAL; LYMPH % 19.7 % (9.0-44.0); LYMPHOCYTE # 1.6 TH/MM3 (1.0-4.8); MEAN CELL VOLUME 91.4 FL (80.0-100.0); MEAN CORPUSCULAR HEMOGLOBIN 31.4 PG (27.0-34.0); MEAN CORPUSCULAR HGB CONC 34.4 % (32.0-36.0); MONO % 5.3 % (0.0-8.0); NEUT % 73.3 % (16.0-70.0); PLATELET COUNT 175 TH/MM3 (150-450); RED CELL DISTRIBUTION WIDTH 13.2 % (11.6-17.2)
[2016-08-15 07:04] LABS: ALKALINE PHOSPHATASE 76 U/L (45-117); ALT (GPT) 19 U/L (10-53); ANION GAP 7 MEQ/L (5-15); AST (GOT) 11 U/L (15-37); BICARBONATE 23.9 MEQ/L (21.0-32.0); BLOOD UREA NITROGEN 10 MG/DL (7-18); CHLORIDE 107 MEQ/L (98-107); GLOMERULAR FILTRATION RATE 90 ML/MIN (>89); POTASSIUM 3.9 MEQ/L (3.5-5.1); SODIUM (NA) 138 MEQ/L (136-145); TOTAL BILIRUBIN ADULT 0.5 MG/DL (0.2-1.0)
[2016-08-15] MEDS: SODIUM CHLORIDE 0.9% FLUSH 10 ML FLUSH IV FLUSH SCH ×2 (09:00→20:17)
--- NOTE | 2016-08-15 09:29 | HHI.HP ---
HPI Service Family Medicine Primary Care Physician No Primary Care Physician Admission Diagnosis PSA, EtOH Diagnoses: (1) Intoxication by drug Diagnosis: Principal (2) Alcohol intoxication Diagnosis: Principal (3) UTI (urinary tract infection) Diagnosis: Principal (4) Nutrition, metabolism, and development symptoms Diagnosis: Principal (5) No contraindication to deep vein thrombosis (DVT) prophylaxis Diagnosis: Principal International Travel<30 Days: No (UNABLE TO ASSESS) Contact w/Intl Traveler<30days: No (UNABLE TO ASSESS) Known Affected Area: No (UNABLE TO ASSESS) History of Present Illness Ms. Drake is a 36 y/o F with a history of bipolar disease and alcohol abuse presenting via EMS for AMS. Per EMS, patient walked into a fitness center this morning and did not know where she was. The fitness center staff called EMS and she was unresponsive on arrival. At the scene her BG was 103 with normal vital signs. Upon evaluation of both the ER staff and the admitting medical team she was unresponsive to verbal, tactile, and painful stimulation. Her vital signs are currently WNL. Of note on laboratory evaluation patient found to be positive for amphetamines, cocaine, and marijuana with an alcohol of 173. She also appears to have a continued UTI from a previous ER visit for flank pain. Prior culture positive for ESBL E. coli on 07/13/15 and received only one dose of Ceftriaxone. She was more alert and conversant last pm when I saw her and this morning was able to give more history. [place] who moved here a month or so ago and reports finding employment in that time. She stated that her cousin of a heroin overdose less than a week ago and she was trying to drink herself into oblivion recently. She stated she is depressed but not currently suicidal. She drinks a "half gallon or whole gallon per day of whatever is cheapest like whiskey". Her past hospitalizations have been in [facility] and she reports doing well on seroquel and trazadone in the past. She has not been taking her meds recently at all. She does want to quit drinking and wishes a safe place to help her quit drinking when she leaves the hospital. Review of Systems ROS Limitations: Poor Historian Constitutional: COMPLAINS OF: Fatigue Endocrine: COMPLAINS OF: Polyuria, DENIES: Polydipsia Ears, nose, mouth, throat: DENIES: Running Nose Respiratory: DENIES: Shortness of breath Cardiovascular: DENIES: Chest pain, Lower Extremity Edema Gastrointestinal: COMPLAINS OF: Abdominal pain Genitourinary: COMPLAINS OF: Urinary frequency, Dysuria, Nocturia Musculoskeletal: COMPLAINS OF: Muscle aches Integumentary: DENIES: Rash Hematologic/lymphatic: DENIES: Lymphadenopathy Neurologic: COMPLAINS OF: Tremor, DENIES: Abnormal gait, Localized weakness, Seizures, Poor Balance Psychiatric: COMPLAINS OF: Anxiety, Mood changes, Depression, Hallucinations, DENIES: Suicidal Ideation, Delusions Past Family Social History Past Medical History Bipolar Alcohol abuse Past Surgical History Per chart review Appendectomy x3 Cholecystectomy Bladder repair Allergies: Coded Allergies: Penicillin (Verified Allergy, Unknown, Rash, 08/14/16) Has tolerated Keflex in the past *MDRO Multi-Drug Resistant Organism (Verified Adverse Reaction, Unknown, ) ESBL E.Coli (urine)-07/12/16 Family History Cousin of heroin overdose was unable to provide other family history on admission Social History Unable to be obtained due to clinical status Positive drug scree on this admission for marijuana, cocaine, and amphetamines. Alcohol level of 173 on admission. Physical Exam Vital Signs Vital Signs Date Time Temp Pulse Resp B/P Pulse Ox O2 Delivery O2 Flow Rate FiO2 08/15/16 08:00 98.8 89 20 103/68 94 08/15/16 04:00 97.9 91 20 105/61 95 08/15/16 00:00 Room Air 08/15/16 00:00 98.0 92 22 143/65 100 08/14/16 21:30 97 21 08/14/16 20:00 Room Air 08/14/16 20:00 97.1 103 20 98/59 100 08/14/16 19:48 87 08/14/16 16:00 98.3 80 20 112/72 100 08/14/16 13:30 97.8 83 20 107/74 96 08/14/16 13:14 72 26 115/76 100 08/14/16 12:30 74 27 106/72 96 Nasal Cannula 2 08/14/16 11:30 78 21 104/66 96 Nasal Cannula 2 08/14/16 11:19 99 Nasal Cannula 3.00 08/14/16 10:30 84 18 105/68 98 Room Air 2 08/14/16 09:30 82 21 115/62 99 Nasal Cannula 3 Physical Exam GENERAL: Well-nourished, well-developed 36-year-old female lying in bed difficult to wake up but finally was able to provide more history today SKIN: Warm and dry. No rash. Multiple tattoos. HEENT: Atraumatic, normocephalic. PERRL. Mucous membranes dry. Gag reflex intact. Trachea midline with no JVD or LAD appreciated. CARDIOVASCULAR: Regular rate and rhythm without obvious murmurs, gallops, or rubs. RESPIRATORY: Clear to auscultation bilaterally. No CRW appreciated. No increased work of breathing. GASTROINTESTINAL: Abdomen soft, non-tender, nondistended with positive bowel sounds. No hepatosplenomegaly appreciated. MUSCULOSKELETAL: No cyanosis or edema. No obvious deformities. NEURO/PSYCH: Patient was unresponsive to tactile, verbal, or painful stimulation.Today was more conversant and able to stand and go to bedside commode Laboratory Laboratory Tests Test 08/14/16 08/14/16 08/15/16 16:05 21:35 06:00 Lactic Acid Level 0.6 Sodium Level 138 138 Potassium Level 4.8 3.9 Chloride Level 111 107 Carbon Dioxide Level 19.0 23.9 Anion Gap 8 7 Blood Urea Nitrogen 12 10 Creatinine 0.67 0.73 Estimat Glomerular Filtration 100 90 Rate Random Glucose 103 95 Calcium Level 7.2 7.8 Protein Corrected Calcium 7.7 Total Protein 6.1 6.1 White Blood Count 8.0 Red Blood Count 3.80 Hemoglobin 11.9 Hematocrit 34.7 Mean Corpuscular Volume 91.4 Mean Corpuscular Hemoglobin 31.4 Mean Corpuscular Hemoglobin 34.4 Concent Red Cell Distribution Width 13.2 Platelet Count 175 Mean Platelet Volume 9.2 Neutrophils (%) (Auto) 73.3 Lymphocytes (%) (Auto) 19.7 Monocytes (%) (Auto) 5.3 Eosinophils (%) (Auto) 1.1 Basophils (%) (Auto) 0.6 Neutrophils # (Auto) 5.9 Lymphocytes # (Auto) 1.6 Monocytes # (Auto) 0.4 Eosinophils # (Auto) 0.1 Basophils # (Auto) 0.0 CBC Comment DIFF FINAL Differential Comment Total Bilirubin 0.5 Aspartate Amino Transf 11 (AST/SGOT) Alanine Aminotransferase 19 (ALT/SGPT) Alkaline Phosphatase 76 Albumin 2.9 Date/Time Procedure Status Source Growth 08/14/16 07:05 Urine Culture Received Urine Catheterized Urine Pending 08/14/16 06:50 Aerobic Blood Culture Received Blood Peripheral Pending 08/14/16 06:50 Anaerobic Blood Culture Received Blood Peripheral Pending Result Diagram: 08/15/16 0600 08/15/16 0600 Imaging Last [address] 08/14/16657 Signed Impressions: Service Date/Time: Sunday, August 14, 2016 08:13 - CONCLUSION: Negative for an acute process. Gee Bourgeois MD FACR Chest X-Ray 08/14/16657 Signed Impressions: Service Date/Time: Sunday, August 14, 2016 07:35 - CONCLUSION: 1. Low lung volumes without acute cardiopulmonary disease. Ridge Lawson MD Assessment and Plan Assessment and Plan Ms. Drake is a 36 y/o F with no significant PMHx per chart review presenting via EMS for AMS secondary to alcohol and polysubstance abuse. Problem List: (1) Intoxication by drug Status: Acute Plan: Patient admitted for AMS found to be positive for amphetamines, cocaine, and marijuana on UDS at admission. She wishes to go for rehab on discharge. will see what resources are available for her -CT head: WNL -UDS: Positive for marijuana, cocaine, and amphetamines plus alcohol -Lactic acid: 2.1, repeat at 1200 -CK: normal -Ammonia: 34 -Telemetry -Avoid Beta Blockers with cocaine use -Fall precautions -Seizure precautions -Neuro checks Q4H Medications: -NS at 140 with KCl, can heplock since she is more alert (2) Alcohol intoxication Status: Acute Plan: Patient admitted for AMS found to have an alcohol level of 173 on admission. -CT head: WNL -Alcohol: 173 -Ammonia: 34 -CIWA protocol -Fall precautions -Seizure precautions -Neuro checks Q4H Medications: -IV rally pack -NS at 140 with KCl (3) UTI (urinary tract infection) Status: Acute Plan: Patient with UA concerning for UTI. On prior ER visit found to have untreated E. coli ESBL infection. Of note patient has penicillin allergy. -UA: cloudy, moderate occult blood, positive nitrite, leukocyte esterase negative, 24 RBC, many bacteria, few mucus -UC: pending -Previous UC 07/12: ESBL E. coli sensitive to ertapenem, imipenem, gentamicin, zosyn, augmentin, and tobramycin Medications: -NS at 140 with KCl, she is drinking fluids so will heplock -Gentamicin 510mg QD (5mg/kg) stopped started Invanz per ID -Infectious Disease consulted, appreciate recommendations (4) Nutrition, metabolism, and development symptoms Status: Acute Plan: Fluids: NS at 140 with KCl, heplock Electrolytes: Hypokalemic initially Diet:regular Prophylaxis: CIWA protocol, Albuterol PRN SOB, Tessalon PRN cough, Imodium PRN diarrhea, Pericolace PRN constipation, Hydroxyzine PRN insomnia, Zofran PRN N/V , Clonidine PRN for BP >180/100 (5) No contraindication to deep vein thrombosis (DVT) prophylaxis Status: Acute Plan: -Lovenox 40mg QD -SCD/TEDs Physician Certification 2 Midnight Certification Type: Admission for Inpatient Services Order for Inpatient Services The services are ordered in accordance with Medicare regulations or non- Medicare payer requirements, as applicable. In the case of services not specified as inpatient-only, they are appropriately provided as inpatient services in accordance with the 2-midnight benchmark. Estimated LOS (days): 3 3 days is the estimated time the patient will need to remain in the hospital, assuming treatment plan goals are met and no additional complications. Post-Hospital Plan: Not yet determined Problem Qualifiers (1) Intoxication by drug: Qualified Code: F19.929 - Intoxication by drug, with unspecified complication (2) Alcohol intoxication: Qualified Code: F10.929 - Alcohol intoxication, with unspecified complication (3) UTI (urinary tract infection): Qualified Code: N30.00 - Acute cystitis without hematuria Cheri Arizmendi MD Aug 15, 2016 09:29 Cheri Arizmendi MD Aug 15, 2016 09:29
[2016-08-15] MEDS ORDERED: chlordiazePOXIDE 25 MG CAP PO ONE (09:45)
[2016-08-15] MEDS: THIAMINE INJ 100 MG in SODIUM CHLORIDE 0.9% INJ 100 ML IV SCH (11:19)
[2016-08-15] MEDS: ENOXAPARIN SODIUM 40 MG/0.4 ML SYRINGE SQ SCH (11:20)
[2016-08-15] MEDS: QUEtiapine FUMARATE 25 MG TAB PO SCH ×2 (11:27→20:17)
[2016-08-15] MEDS: MULTIVITAMIN INJ 10 ML, FOLIC ACID INJ 1 MG in SODIUM CHLORID 0.9% 500 ML INJ 500 ML IV SCH (12:10)
[2016-08-15] MEDS: ERTAPENEM INJ 1,000 MG in SODIUM CHLORIDE 0.9% INJ 100 ML IV SCH (17:26)
[2016-08-15] MEDS: traZODone HCL 50 MG TAB PO SCH (20:17)
[2016-08-16] VITALS (12 sets, daily range): BP systolic 93–150; BP diastolic 52–74; PULSE 63–91; RESP 16–18; TEMP 97.9–100; O2SAT 93–99
[2016-08-16 07:09] LABS: HEMATOCRIT 35.5 % (35.0-46.0); MEAN CORPUSCULAR HEMOGLOBIN 31.2 PG (27.0-34.0); MEAN CORPUSCULAR HGB CONC 34.3 % (32.0-36.0); PLATELET COUNT 175 TH/MM3 (150-450); RED CELL DISTRIBUTION WIDTH 13.2 % (11.6-17.2); REVIEW FLAG FINAL; WHITE BLOOD COUNT 9.3 TH/MM3 (4.0-11.0)
[2016-08-16 07:28] LABS: BICARBONATE 25.8 MEQ/L (21.0-32.0)
[2016-08-16] MEDS: SODIUM CHLORIDE 0.9% FLUSH 10 ML FLUSH IV FLUSH SCH ×2 (08:21→20:20)
[2016-08-16] MEDS: QUEtiapine FUMARATE 25 MG TAB PO SCH ×2 (08:21→20:21)
[2016-08-16] MEDS: LORazepam 2 MG/ML VIAL IV PUSH PRN ×3 (08:38→21:27)
--- NOTE | 2016-08-16 09:57 | HHI.FPPN ---
Subjective Remarks Patient seen and examined this morning. No acute events overnight with vital signs stable. Patient continues to be very lethargic and falling in and out of sleep during interview. She endorses that she had no hallucinations overnight and states that she is feeling better. She denies receiving her home medications of trazodone and Seroquel, however per chart review she did receive these medications before bed last night. Her CIWA scores continue to be elevated ranging from 0-12 over the last 24 hours. She endorses no other complaints and denies any fevers, chills, shortness breath, chest pain, NVD, or calf tenderness (Neil Tejada MD R1) Objective Vitals Vital Signs Date Time Temp Pulse Resp B/P Pulse Ox O2 Delivery O2 Flow Rate FiO2 08/16/16 08:55 Room Air 21 08/16/16 04:00 100.0 89 18 150/74 97 08/16/16 00:00 99.0 65 16 95/65 95 08/15/16 20:22 Room Air 08/15/16 20:00 98.3 75 18 103/63 96 08/15/16 17:25 96 21 08/15/16 16:00 97.7 80 20 91/57 96 08/15/16 12:00 98.3 92 20 118/69 97 I/O 08/15/16 08/15/16 08/15/16 08/16/16 08/16/16 08/16/16 07:00 15:00 23:00 07:00 15:00 23:00 Intake Total 736 ml 720 ml 240 ml 120 ml Output Total 450 ml 1500 ml 1100 ml 700 ml Balance 286 ml -780 ml -860 ml -580 ml Intake Oral 0 ml 720 ml 240 ml 120 ml IV Total 736 ml Output Urine Total 450 ml 1500 ml 1100 ml 700 ml # Voids 4 # Bowel Movements 0 0 0 (Neil Tejada MD R1) Result Diagram: 08/16/1651408/16/1615 Objective Remarks GENERAL: Well-nourished, well-developed 36-year-old female lying in bed difficult to wake up but finally was able to converse. SKIN: Warm and dry. No rash. Multiple tattoos. HEENT: Atraumatic, normocephalic. No rhinorrhea. No JVD or LAD appreciated. CARDIOVASCULAR: Regular rate and rhythm without obvious murmurs, gallops, or rubs. RESPIRATORY: Clear to auscultation bilaterally. No CRW appreciated. No increased work of breathing. GASTROINTESTINAL: Abdomen soft, non-tender, nondistended with positive bowel sounds. No hepatosplenomegaly appreciated. MUSCULOSKELETAL: No cyanosis or edema. No obvious deformities. NEURO/PSYCH: Patient AAO 3, however was lethargic during interview falling in and out of sleep. (Neil Tejada MD R1) A/P Assessment and Plan Ms. Drake is a 36 y/o F with no significant PMHx per chart review presenting via EMS for AMS secondary to alcohol and polysubstance abuse. Discharge Planning Pending withdrawal clinical course and improvement of CIWA scoring. (Neil Tejada MD R1) Attending Attestation Patient seen and examined. Case reviewed and discussed with the resident team. Agree with plan of care as discussed with me and documented in the resident note. when I saw her she was walking around the room and reported history of sleep apnea. She also was very concerned about her Psychiatric problems and felt that the meds we started were not adequate. She wishes a Psychiatric consult to get help with her multiple sxs as well as suggestions on where to get help with her alcohol and substance abuse. She stated she wanted to hurt herself and "that's why I was drinking and taking drugs". She did not say she was not suicidal but would not clearly answer if she wanted to hurt herself or had future plans except to say "if I'm not around people who will help me I may try to hurt myself" (Cheri Arizmendi MD) Problem List: (1) Intoxication by drug Status: Acute Plan: Patient admitted for AMS found to be positive for amphetamines, cocaine, and marijuana on UDS at admission. She wishes to go for rehab on discharge. will see what resources are available for her. Patient also reports that at the time of substance abuse ingestion she was trying to harm herself. -CT head: WNL -UDS: Positive for marijuana, cocaine, and amphetamines plus alcohol -Lactic acid: 2.1, repeat 0.6 -CK: normal -Ammonia: 34 -Telemetry -Avoid Beta Blockers with cocaine use -Fall precautions -Seizure precautions -Neuro checks Q4H Medications: -NS at 140 with KCl, can heplock since she is more alert -Psychiatry consulted, appreciate recommendations (2) Alcohol intoxication Status: Acute Plan: Patient admitted for AMS found to have an alcohol level of 173 on admission. -CT head: WNL -Alcohol: 173 -Ammonia: 34 -CIWA protocol, scores ranging from 0-12 over the last 24 hours with 2 mg of Ativan administered as well as 2 mg of Haldol for agitation. -Fall precautions -Seizure precautions -Neuro checks Q4H Medications: -IV rally pack -NS at 140 with KCl -Ativan per CIWA -Haldol for agitation (3) UTI (urinary tract infection) Status: Acute Plan: Patient with UA concerning for UTI. On prior ER visit found to have untreated E. coli ESBL infection. Of note patient has penicillin allergy. -UA: cloudy, moderate occult blood, positive nitrite, leukocyte esterase negative, 24 RBC, many bacteria, few mucus -UC: ESBL Escherichia coli sensitive to Invanz -Previous UC 07/12: ESBL E. coli sensitive to ertapenem, imipenem, gentamicin, zosyn, augmentin, and tobramycin Medications: -NS at 140 with KCl, she is drinking fluids so will heplock -Invanz 1 g every 24 hours -Infectious Disease consulted, appreciate recommendations -Renal ultrasound: Stable right renal scar, no acute finding -Abdominal pelvis CT: Pending (4) Nutrition, metabolism, and development symptoms Status: Acute Plan: Fluids: NS at 140 with KCl, heplock Electrolytes: Hypokalemic initially Diet:regular Prophylaxis: CIWA protocol, Albuterol PRN SOB, Tessalon PRN cough, Imodium PRN diarrhea, Pericolace PRN constipation, Hydroxyzine PRN insomnia, Zofran PRN N/V , Clonidine PRN for BP >180/100 (5) No contraindication to deep vein thrombosis (DVT) prophylaxis Status: Acute Plan: -Lovenox 40mg QD -SCD/TEDs (Neil Tejada MD R1) Problem Qualifiers (1) Intoxication by drug: Qualified Code: F19.929 - Intoxication by drug, with unspecified complication (2) Alcohol intoxication: Qualified Code: F10.929 - Alcohol intoxication, with unspecified complication (3) UTI (urinary tract infection): Qualified Code: N30.00 - Acute cystitis without hematuria Neil Tejada MD R1 Aug 16, 2016 09:57 Cheri Arizmendi MD Aug 16, 2016 17:05
[2016-08-16] MEDS: THIAMINE INJ 100 MG in SODIUM CHLORIDE 0.9% INJ 100 ML IV SCH (11:23)
[2016-08-16] MEDS: ENOXAPARIN SODIUM 40 MG/0.4 ML SYRINGE SQ SCH (11:23)
[2016-08-16] MEDS: MULTIVITAMIN INJ 10 ML, FOLIC ACID INJ 1 MG in SODIUM CHLORID 0.9% 500 ML INJ 500 ML IV SCH (12:18)
--- NOTE | 2016-08-16 12:20 | HHI.IDPN ---
Subjective Subjective Remarks Patient is a 36-year-old female, brought into the hospital after she became unresponsive. She apparently walked in into the fitness center and she told the staff that she did not know where she was. They called EMS and upon arrival patient was unresponsive. Her vital signs were stable, and she was brought to the hospital for further evaluation and treatment. She did not have any fever. Her WBC is normal. Her drug screen was positive for alcohol, amphetamine, cocaine, and marijuana. Aspiration mental status has improved since she came up to the floor. However she is very fidgety. According to the patient she usually does alcohol and marijuana. Of note is that the patient visited the emergency room the middle of June complaining of right flank pain. Her urinalysis at that time was normal. CT of the abdomen and pelvis showed a right kidney stone which was non- obstructing. The urine culture eventually grew Escherichia coli ESBL positive organism. Patient continues to complain of pain in her right kidney. She had complaints of dysuria, and denies any nausea or any vomiting. Denies any diarrhea or any respiratory complaint. Notes reviewed D/W RN Patient gets very restless easily Low grade temps overnight UC E coli ESBL+ Still C/O dysuria and flank pain Renal US no hydro Antibiotics Zosyn Lines PIV Past Medical History Reviewed Allergies: Coded Allergies: Penicillin (Verified Allergy, Unknown, Rash, 08/14/16) Has tolerated Keflex in the past *MDRO Multi-Drug Resistant Organism (Verified Adverse Reaction, Unknown, ) ESBL E.Coli (urine)-07/12/16 Objective . Vital Signs Date Time Temp Pulse Resp B/P Pulse Ox O2 Delivery O2 Flow Rate FiO2 08/16/16 10:30 94 08/16/16 08:55 Room Air 21 08/16/16 08:00 98.2 86 16 108/60 93 08/16/16 04:00 100.0 89 18 150/74 97 08/16/16 00:00 99.0 65 16 95/65 95 08/15/16 20:22 Room Air 08/15/16 20:00 98.3 75 18 103/63 96 08/15/16 17:25 96 21 08/15/16 16:00 97.7 80 20 91/57 96 08/15/16 08/15/16 08/16/16 15:00 23:00 07:00 Intake Total 720 ml 240 ml 120 ml Output Total 1500 ml 1100 ml 700 ml Balance -780 ml -860 ml -580 ml Intake Oral 720 ml 240 ml 120 ml Output Urine Total 1500 ml 1100 ml 700 ml # Voids 4 # Bowel Movements 0 0 . Laboratory Tests Test 08/15/16 08/16/16 06:00 05:15 White Blood Count 8.0 TH/MM3 9.3 TH/MM3 Red Blood Count 3.80 MIL/MM3 3.90 MIL/MM3 Hemoglobin 11.9 GM/DL 12.2 GM/DL Hematocrit 34.7 % 35.5 % Mean Corpuscular Volume 91.4 FL 91.0 FL Mean Corpuscular Hemoglobin 31.4 PG 31.2 PG Mean Corpuscular Hemoglobin 34.4 % 34.3 % Concent Red Cell Distribution Width 13.2 % 13.2 % Platelet Count 175 TH/MM3 175 TH/MM3 Mean Platelet Volume 9.2 FL 9.6 FL Neutrophils (%) (Auto) 73.3 % Lymphocytes (%) (Auto) 19.7 % Monocytes (%) (Auto) 5.3 % Eosinophils (%) (Auto) 1.1 % Basophils (%) (Auto) 0.6 % Neutrophils # (Auto) 5.9 TH/MM3 Lymphocytes # (Auto) 1.6 TH/MM3 Monocytes # (Auto) 0.4 TH/MM3 Eosinophils # (Auto) 0.1 TH/MM3 Basophils # (Auto) 0.0 TH/MM3 CBC Comment DIFF FINAL Differential Comment Laboratory Tests Test 08/14/16 08/14/16 08/15/16 08/16/16 16:05 21:35 06:00 05:15 Lactic Acid Level 0.6 mmol/L Sodium Level 138 MEQ/L 138 MEQ/L 142 MEQ/L Potassium Level 4.8 MEQ/L 3.9 MEQ/L 4.0 MEQ/L Chloride Level 111 MEQ/L 107 MEQ/L 108 MEQ/L Carbon Dioxide Level 19.0 MEQ/L 23.9 MEQ/L 25.8 MEQ/L Anion Gap 8 MEQ/L 7 MEQ/L 8 MEQ/L Blood Urea Nitrogen 12 MG/DL 10 MG/DL 7 MG/DL Creatinine 0.67 MG/DL 0.73 MG/DL 0.77 MG/DL Estimat Glomerular Filtration 100 ML/MIN 90 ML/MIN 85 ML/MIN Rate Random Glucose 103 MG/DL 95 MG/DL 87 MG/DL Calcium Level 7.2 MG/DL 7.8 MG/DL 8.2 MG/DL Protein Corrected Calcium 7.7 MG/DL Total Protein 6.1 GM/DL 6.1 GM/DL Total Bilirubin 0.5 MG/DL Aspartate Amino Transf 11 U/L (AST/SGOT) Alanine Aminotransferase 19 U/L (ALT/SGPT) Alkaline Phosphatase 76 U/L Albumin 2.9 GM/DL Microbiology Date/Time Procedure Status Source Growth 08/14/16 06:50 Aerobic Blood Culture - Preliminary Resulted Blood Peripheral NO GROWTH IN 2 DAYS 08/14/16 06:50 Anaerobic Blood Culture - Preliminary Resulted Blood Peripheral NO GROWTH IN 2 DAYS 08/14/16 06:50 Aerobic Blood Culture - Preliminary Resulted Blood Peripheral NO GROWTH IN 2 DAYS 08/14/16 06:50 Anaerobic Blood Culture - Preliminary Resulted Blood Peripheral NO GROWTH IN 2 DAYS 08/14/16 07:05 Urine Culture - Final Complete Urine Catheterized Urine Escherichia Coli Esbl Positive Imaging Last Impressions Head CT 08/14/16 0658 Signed Impressions: Service Date/Time: Sunday, August 14, 2016 08:13 - CONCLUSION: Negative for an acute process. Gee Bourgeois MD FACR Chest X-Ray 08/14/16 0658 Signed Impressions: Service Date/Time: Sunday, August 14, 2016 07:35 - CONCLUSION: 1. Low lung volumes without acute cardiopulmonary disease. Ridge Lawson MD Renal Ultrasound 08/14/16 0000 Signed Impressions: Service Date/Time: Sunday, August 14, 2016 19:21 - CONCLUSION: 1. Stable right renal scar. 2. No acute finding is identified. Byron Hudson MD Physical Exam GENERAL: awake and alert, restless, not in respiratory distress. SKIN: Warm and dry. No generalized rash, no ecchymoses and no evidence of embolic lesions. HEAD: Atraumatic. Normocephalic. No temporal wasting, or tenderness. EYES: [place] conjunctiva. No petechia or hemorrhage. Pupils equal, round and reactive to light. Extraocular movements full and intact. No scleral icterus. No injection or drainage. EARS, NOSE AND THROAT: Nose without bleeding or purulent nasal discharge. No sinus tenderness. Mucous membranes pink and moist. NECK: Trachea midline. Supple and not tender, no meningeal signs CARDIOVASCULAR: Regular rate and rhythm. No murmurs, rubs or gallops heard RESPIRATORY: Clear to auscultation. Breath sounds equal bilaterally. No rales , wheezing or rhonchi ABDOMEN: Soft, non-tender, nondistended. Bowel sounds present and normoactive. No guarding. No rebound. No organomegaly. BACK: Complains of tenderness R CVA EXTREMITIES: No clubbing, cyanosis, or edema. No joint effusion, has good ROM. No calf tenderness. Well perfused and warm. NEUROLOGICAL: Awake and alert. Cranial nerves grossly intact. Motor grossly within normal limits. PSYCHIATRIC: Restless in bed, fidgety LINE: No evidence of infection Assessment & Plan Remarks IMPRESSION Episode of unresponsiveness due to drugs (UDS + cocaine, meth, marijuana, and ETOH) - now very restless, fidgety UTI, has stone R from CT, ?moving, continues to pain R flank, and UA now abnormal with RBC and WBC - US shows no hydro - still symptomatic Previous UC with E coli ESBL+ Allergy to PCN, rash, but ok with Keflex Known polysubstance abuse RECOMMENDATION CT A/P to further evaluate persistent pain Continue Invanz Monitor progress D/W Beverly Mcmahon MD Aug 16, 2016 12:20
--- NOTE | 2016-08-16 14:52 | PD.CONS ---
Provisional Diagnosis Admission Date Aug 14, 2016 at 10:23 [place] I. Polysubstance dependence, including cocaine, cannabis, amphetamines and alcohol , history of PTSD, history of depression [place] II. Unspecified personality disorder, rule/out borderline personality disorder [place] III. UTI [place] IV. Use of multiple drugs [place] V. 55 History of Present Illness Service Psychiatry Consult Requested By Primary Care Physician No Primary Care Physician HPI The patient a 36 y/o woman, domicile with her sister in [facility], employed in [employer], mother of 2 adult kids, with self-reported psychiatric history of PTSD, anxiety and depression, no active outpatient care, patient has being in Seroquel trazodone and Klonopin in the past, polysubstance dependence including cannabis, cocaine, amphetamines and alcohol, she has multiple suicidal attempts, also multiple parasuicidal by self cutting and OD, presenting via EMS for AMS. Per EMS, patient walked into a fitness center this morning and did not know where she was. The fitness center staff called EMS and she was unresponsive on arrival. At the scene her BG was 103 with normal vital signs. Upon evaluation of both the ER staff and the admitting medical team she was unresponsive to verbal, tactile, and painful stimulation. Her vital signs are currently WNL. Of note on laboratory evaluation patient found to be positive for amphetamines, cocaine, and marijuana with an alcohol of 173. She also appears to have a continued UTI from a previous ER visit for flank pain. On psychiatric evaluation today patient is found in the bed, she reports okay mood, she says that she has been drinking alcohol and using marijuana on and off to combat anxiety and depression. At the beginning of the evaluation she denies that she is using cocaine and amphetamines, but later on she says that she uses drugs sometimes. At this moment the patient denies depressive symptoms , she denies suicidal or homicidal ideation, she denies visual and auditory hallucinations. She expresses her satisfaction of being prescribed by Seroquel and trazodone here in the hospital. Patient is fully oriented 3, no attention deficit. She reports occasional use of alcohol, almost daily use of marijuana, occasional use of cocaine and amphetamines. She declines to quantify the amount of drugs that she uses. Review of Systems Constitutional: DENIES: Diaphoretic episodes, Fatigue, Fever, Weight gain, Weight loss, Chills, Dizziness, Change in appetite, Night Sweats Endocrine: DENIES: Abnorml menstrual pattern, Heat/cold intolerance, Polydipsia , Polyuria, Polyphagia Eyes: DENIES: Blurred vision, Diplopia, Eye inflammation, Eye pain, Vision loss , Photosensitivity, Double Vision Ears, nose, mouth, throat: DENIES: Tinnitus, Hearing loss, Vertigo, Nasal discharge, Oral lesions, Throat pain, Hoarseness, Ear Pain, Running Nose, Epistaxis, Sinus Pain, Toothache, Odynophagia Respiratory: DENIES: Apneas, Cough, Snoring, Wheezing, Hemoptysis, Sputum production, Shortness of breath Cardiovascular: DENIES: Chest pain, Palpitations, Syncope, Dyspnea on Exertion , PND, Lower Extremity Edema, Orthopnea, Claudication Gastrointestinal: DENIES: Abdominal pain, Black stools, Bloody stools, Constipation, Diarrhea, Nausea, Vomiting, Difficulty Swallowing, Anorexia Musculoskeletal: DENIES: Joint pain, Muscle aches, Stiffness, Joint Swelling, Back pain, Neck pain Integumentary: DENIES: Abnormal pigmentation, Pruritus, Rash, Nail changes, Breast masses, Breast skin changes, Nipple discharge Neurologic: DENIES: Abnormal gait, Headache, Localized weakness, Paresthesias, Seizures, Speech Problems, Tremor, Poor Balance Psychiatric: DENIES: Anxiety, Confusion, Mood changes, Depression, Hallucinations, Agitation, Suicidal Ideation, Homicidal Ideation, Delusions Past Family Social History Coded Allergies: Penicillin (Verified Allergy, Unknown, Rash, 08/14/16) Has tolerated Keflex in the past *MDRO Multi-Drug Resistant Organism (Verified Adverse Reaction, Unknown, ) ESBL E.Coli (urine)-07/12/16 Current Medications Medications (Trade) Dose Ordered Sig/Brodie Route Start Time Stop Time Status Last Admin (NS Flush) 2 ml UNSCH PRN IV FLUSH 08/14/16 10:45 (NS Flush) 2 ml BID IV FLUSH 08/14/16 10:45 08/16/16 08:21 (Lovenox Inj) 40 mg Q24H SQ 08/14/16 12:00 08/16/16 11:23 (Romazicon Inj) 0.2 mg Q1M PRN IV PUSH 08/14/16 10:45 (Ativan) 1 mg Q4H PRN PO 08/14/16 10:45 08/14/16 17:04 (Ativan Inj) 1 mg Q4H PRN IV PUSH 08/14/16 10:45 08/16/16 12:40 (Ativan) 2 mg Q2H PRN PO 08/14/16 10:45 (Ativan Inj) 2 mg Q2H PRN IV PUSH 08/14/16 10:45 08/15/16 15:25 (Ativan Inj) 2 mg Q1H PRN IV PUSH 08/14/16 10:45 08/15/16 06:01 (Ativan Inj) 2 mg Q15M PRN IV PUSH 08/14/16 10:45 (Tessalon) 200 mg Q8H PRN PO 08/14/16 10:45 08/15/16 17:25 (Imodium) 2 mg Q6H PRN PO 08/14/16 10:45 (Zaina-Colace) 2 tab BID PRN PO 08/14/16 10:45 (Atarax) 50 mg HS PRN PO 08/14/16 10:45 08/15/16 00:45 (Zofran Inj) 4 mg Q8HR PRN IV PUSH 08/14/16 10:45 Clonidine 0.1 mg 0.1 mg Q6H PRN PO 08/14/16 11:45 (INVanz INJ/NS Inj) 100 ml @ 200 mls/hr Q24H IV 08/14/16 18:00 08/15/16 17:26 (SEROquel) 25 mg BID PO 08/15/16 09:45 08/16/16 08:21 (Desyrel) 50 mg HS PO 08/15/16 21:00 08/15/16 20:17 (Folate) 1 mg DAILY PO 08/17/16 09:00 (Vitamin B1) 100 mg DAILY PO 08/17/16 09:00 (Theragran) 1 tab DAILY PO 08/17/16 09:00 Family History She has an uncle with schizophrenia Social History Patient was born and raised in [place], she lives in [place] with her sister, she has 3 adult kids, work as a artillery or naval gunfire observer in [employer], her highest level of education is high school Patient's Strengths (min. 2) Verbal communication Physical Exam On physical exam, no tremors, no withdrawal, no EPS, no gait disturbances, present Vital Signs Vital Signs Date Time Temp Pulse Resp B/P Pulse Ox O2 Delivery O2 Flow Rate FiO2 08/16/16 10:30 94 08/16/16 08:55 Room Air 21 08/16/16 08:00 98.2 86 16 108/60 08/14/16 12:30 2 I/O 08/15/16 08/15/16 08/16/16 08:00 16:00 00:00 Intake Total 736 ml 720 ml 240 ml Output Total 450 ml 2300 ml 300 ml Balance 286 ml -1580 ml -60 ml Lab Results Laboratory Tests Test 08/14/16 08/14/16 08/15/16 16:05 21:35 06:00 Lactic Acid Level 0.6 Sodium Level 138 138 Potassium Level 4.8 3.9 Chloride Level 111 107 Carbon Dioxide Level 19.0 23.9 Anion Gap 8 7 Blood Urea Nitrogen 12 10 Creatinine 0.67 0.73 Estimat Glomerular Filtration 100 90 Rate Random Glucose 103 95 Calcium Level 7.2 7.8 Protein Corrected Calcium 7.7 Total Protein 6.1 6.1 White Blood Count 8.0 Red Blood Count 3.80 Hemoglobin 11.9 Hematocrit 34.7 Mean Corpuscular Volume 91.4 Mean Corpuscular Hemoglobin 31.4 Mean Corpuscular Hemoglobin 34.4 Concent Red Cell Distribution Width 13.2 Platelet Count 175 Mean Platelet Volume 9.2 Neutrophils (%) (Auto) 73.3 Lymphocytes (%) (Auto) 19.7 Monocytes (%) (Auto) 5.3 Eosinophils (%) (Auto) 1.1 Basophils (%) (Auto) 0.6 Neutrophils # (Auto) 5.9 Lymphocytes # (Auto) 1.6 Monocytes # (Auto) 0.4 Eosinophils # (Auto) 0.1 Basophils # (Auto) 0.0 CBC Comment DIFF FINAL Differential Comment Total Bilirubin 0.5 Aspartate Amino Transf 11 (AST/SGOT) Alanine Aminotransferase 19 (ALT/SGPT) Alkaline Phosphatase 76 Albumin 2.9 Date/Time Procedure Status Source Growth 08/14/16 07:05 Urine Culture Received Urine Catheterized Urine Pending 08/14/16 06:50 Aerobic Blood Culture Received Blood Peripheral Pending 08/14/16 06:50 Anaerobic Blood Culture Received Blood Peripheral Pending Result Diagram: 08/15/16 0600 08/15/16 0600 Imaging Last [address] 08/14/16657 Signed Impressions: Service Date/Time: Sunday, August 14, 2016 08:13 - CONCLUSION: Negative for an acute process. Gee Bourgeois MD FACR Chest X-Ray 08/14/16657 Signed Impressions: Service Date/Time: Sunday, August 14, 2016 07:35 - CONCLUSION: 1. Low lung volumes without acute cardiopulmonary disease. Ridge Lawson MD Mental Status Examination Appearance Overweight woman, [facility], age appearing, superficially cooperative, calm Speech: Unremarkable Orientation: x3 Memory: Unremarkable Thought Process: Logical Thought Content: Unremarkable Hallucination Type: None Attention and Concentration: Good Suicidal Ideation: No Previous Suicide Attempts: Yes Homicidal Ideation: No Previous Homicide Attempts: No Insight: Good Affect: Good Mood: Irritable Motor Activity: Normal gait Assessment & Plan Problem List: (1) Polysubstance dependence Assessment & Plan: At the moment of this evaluation the patient does not present any significant or objective or subjective symptomatology of depression , anxiety, evette or psychosis. She denies suicidal or homicidal ideation, she denies visual and auditory hallucinations. Patient has history of polysubstance dependence, self mutilation, previous suicidal attempts, PTSD, anxiety, impulsive behavior which also might suggest a catheter structure. She does not meet criteria for psychiatric admission at this moment. Extensive support, motivation psycho education provided. De León act will be lifted. ICD Code: F19.20 Assessment & Plan Estimated LOS: Ashvin Marte MD Aug 16, 2016 14:52
[2016-08-16] MEDS: ERTAPENEM INJ 1,000 MG in SODIUM CHLORIDE 0.9% INJ 100 ML IV SCH (17:19)
[2016-08-16] MEDS: traZODone HCL 50 MG TAB PO SCH (20:21)
[2016-08-16] MEDS: hydrOXYzine HCL 50 MG TAB PO PRN (21:25)
[2016-08-17 03:19] VITALS: O2SAT 95
[2016-08-17 04:37] VITALS: BP 95/56; PULSE 70; RESP 16; TEMP 97.7; O2SAT 93
[2016-08-17] MEDS: LORazepam 1 MG TAB PO PRN (04:51)
[2016-08-17 08:00] VITALS: BP 90/50; PULSE 76; RESP 18; TEMP 97.8; O2SAT 96
[2016-08-17] MEDS: QUEtiapine FUMARATE 25 MG TAB PO SCH (08:39)
[2016-08-17] MEDS: LORazepam 2 MG/ML VIAL IV PUSH PRN ×2 (08:40→10:24)
[2016-08-17] MEDS: SODIUM CHLORIDE 0.9% FLUSH 10 ML FLUSH IV FLUSH SCH (08:43)
[2016-08-17 08:58] LABS: HEMATOCRIT 36.5 % (35.0-46.0); MEAN CELL VOLUME 90.2 FL (80.0-100.0); MEAN CORPUSCULAR HEMOGLOBIN 31.3 PG (27.0-34.0); MEAN CORPUSCULAR HGB CONC 34.8 % (32.0-36.0); PLATELET COUNT 186 TH/MM3 (150-450); RED BLOOD COUNT 4.05 MIL/MM3 (4.00-5.30); REVIEW FLAG FINAL; WHITE BLOOD COUNT 7.4 TH/MM3 (4.0-11.0)
[2016-08-17] MEDS ORDERED: THIAMINE HCL 100 MG TAB PO SCH (09:00)
[2016-08-17] MEDS ORDERED: MULTIVITAMIN TAB PO SCH (09:00)
[2016-08-17] MEDS ORDERED: FOLIC ACID 1 MG TAB PO SCH (09:00)
[2016-08-17 09:11] LABS: BICARBONATE 27.2 MEQ/L (21.0-32.0); POTASSIUM 4.1 MEQ/L (3.5-5.1)
[2016-08-17] MEDS ORDERED: DIATRIZOATE MEGLUM/DIATRIZOATE SOD 9 ML CUP PO ONE (09:45)
[2016-08-17] MEDS ORDERED: PILL SPLITTER OTHER PRN (10:00)
--- NOTE | 2016-08-17 10:24 | HHI.FPPN ---
Subjective Remarks Patient seen and examined this morning by medical team. No acute events overnight with vital signs stable. Patient with decreasing CIWA scores ranging 3 -11 over the last 24 hours with 4 mg of Ativan administered. Patient states that she did not use her BiPAP machine overnight as she was anxious every time she applied the mask. She did sleep well, but does state she is having difficulty falling asleep due to racing thoughts. She reports that her psychiatric medications are not at the appropriate dosages as she now reports that she is on Seroquel 200 mg in the morning and 100 mg at night with trazodone 100 mg each night. However, she has not been on these medications for greater than 6 months. When discussing her abstinence plan for alcohol and illicit drugs she states that she would like to go to the inpatient facility for further rehabilitation. Otherwise she has no complaints and denies any fevers, chills, shortness of breath, chest pain, NVD, abdominal pain, or calf tenderness. (Neil Tejada MD R1) Objective Vitals Vital Signs Date Time Temp Pulse Resp B/P Pulse Ox O2 Delivery O2 Flow Rate FiO2 08/17/16 10:12 21 08/17/16 04:37 97.7 70 16 95/56 93 08/17/16 03:19 95 21 08/16/16 23:43 97.9 63 16 93/52 95 08/16/16 23:37 97 21 08/16/16 22:42 Bi-Pap 08/16/16 22:06 97 21 08/16/16 20:12 97.9 80 16 114/69 95 08/16/16 20:00 Room Air 08/16/16 19:58 91 08/16/16 17:49 98 21 08/16/16 16:00 98.2 71 18 97/62 99 08/16/16 12:00 98.0 78 18 97/55 98 08/16/16 10:30 94 I/O 08/16/16 08/16/16 08/16/16 08/17/16 08/17/16 08/17/16 07:00 15:00 23:00 07:00 15:00 23:00 Intake Total 120 ml 800 ml 960 ml Output Total 700 ml 900 ml 400 ml Balance -580 ml -100 ml 560 ml Intake Oral 120 ml 800 ml 960 ml Output Urine Total 700 ml 900 ml 400 ml # Bowel Movements 0 0 (Neil Tejada MD R1) Result Diagram: 08/17/16 0745 08/17/16 0745 Objective Remarks GENERAL: Well-nourished, well-developed 36-year-old female lying in bed in no acute distress. Patient is sleeping upon entering the room. SKIN: Warm and dry. No rash. Multiple tattoos. HEENT: Atraumatic, normocephalic. No rhinorrhea. No JVD or LAD appreciated. CARDIOVASCULAR: Regular rate and rhythm without obvious murmurs, gallops, or rubs. RESPIRATORY: Clear to auscultation bilaterally. No CRW appreciated. No increased work of breathing. GASTROINTESTINAL: Abdomen soft, non-tender, nondistended with positive bowel sounds. No hepatosplenomegaly appreciated. MUSCULOSKELETAL: No cyanosis or edema. No obvious deformities. NEURO/PSYCH: Patient AAO 3, however was lethargic during interview falling in and out of sleep. (Neil Tejada MD R1) A/P Assessment and Plan Ms. Drake is a 36 y/o F with no significant PMHx per chart review presenting via EMS for AMS secondary to alcohol and polysubstance abuse. Discharge Planning Pending withdrawal clinical course and improvement of CIWA scoring. (Neil Tejada MD R1) Attending Attestation Patient seen and examined. Case reviewed and discussed with the resident team. Agree with plan of care as discussed with me and documented in the resident note. this am she is alert and oriented but wanting pain meds and more ativan, etc. she has the capacity to make decisions and told her nurse this morning that she wanted to leave AMA. (Cheri Arizmendi MD) Problem List: (1) Intoxication by drug Status: Acute Plan: Patient admitted for AMS found to be positive for amphetamines, cocaine, and marijuana on UDS at admission. She wishes to go for rehab on discharge. will see what resources are available for her. Patient also reports that at the time of substance abuse ingestion she was trying to harm herself. -CT head: WNL -UDS: Positive for marijuana, cocaine, and amphetamines plus alcohol -Lactic acid: 2.1, repeat 0.6 -CK: normal -Ammonia: 34 -Avoid Beta Blockers with cocaine use -Fall precautions -Seizure precautions -Neuro checks Q4H Medications: -NS at 140 with KCl, can heplock since she is more alert -Psychiatry consulted, appreciate recommendations Patient does not meet criteria for psychiatric admission Extensive support, motivation, and psychological education provided. (2) Alcohol intoxication Status: Acute Plan: Patient admitted for AMS found to have an alcohol level of 173 on admission. -CT head: WNL -Alcohol: 173 -Ammonia: 34 -CIWA protocol, scores ranging from 0-12 over the last 24 hours with 2 mg of Ativan administered as well as 2 mg of Haldol for agitation. -Fall precautions -Seizure precautions -Neuro checks Q4H Medications: -IV rally pack -NS at 140 with KCl -Ativan per CIWA -Haldol for agitation (3) UTI (urinary tract infection) Status: Acute Plan: Patient with UA concerning for UTI. On prior ER visit found to have untreated E. coli ESBL infection. Of note patient has penicillin allergy. -UA: cloudy, moderate occult blood, positive nitrite, leukocyte esterase negative, 24 RBC, many bacteria, few mucus -UC: ESBL Escherichia coli sensitive to Invanz -Previous UC 07/12: ESBL E. coli sensitive to ertapenem, imipenem, gentamicin, zosyn, augmentin, and tobramycin Medications: -NS at 140 with KCl, she is drinking fluids so will heplock -Invanz 1 g every 24 hours -Infectious Disease consulted, appreciate recommendations -Renal ultrasound: Stable right renal scar, no acute finding -Abdominal pelvis CT: Pending (4) Nutrition, metabolism, and development symptoms Status: Acute Plan: Fluids: NS at 140 with KCl, heplock Electrolytes: Hypokalemic initially Diet:regular Prophylaxis: CIWA protocol, Albuterol PRN SOB, Tessalon PRN cough, Imodium PRN diarrhea, Pericolace PRN constipation, Hydroxyzine PRN insomnia, Zofran PRN N/V , Clonidine PRN for BP >180/100 (5) No contraindication to deep vein thrombosis (DVT) prophylaxis Status: Acute Plan: -Lovenox 40mg QD -SCD/TEDs (Neil Tejada MD R1) Problem Qualifiers (1) Intoxication by drug: Qualified Code: F19.929 - Intoxication by drug, with unspecified complication (2) Alcohol intoxication: Qualified Code: F10.929 - Alcohol intoxication, with unspecified complication (3) UTI (urinary tract infection): Qualified Code: N30.00 - Acute cystitis without hematuria Neil Tejada MD R1 Aug 17, 2016 10:24 Cheri Arizmendi MD Aug 17, 2016 11:49
--- NOTE | 2016-08-17 11:43 | PD.AMA ---
Against Medical Advice Note Discharge Disposition: Against Medical Advice Pt Condition on Discharge: Stable AMA Statement Patient Karyna Drake has decided to leave the hospital against medical advice. This patient has the capacity to refuse care and understands the risks of leaving, including permanent disability and/or , and has had an opportunity to ask questions about her condition. The patient has been informed that she may return for care at any time at [facility], however she will not be accepted back to the [facility] residency service. Neil Tejada MD R1 Aug 17, 2016 11:43
--- NOTE | 2016-08-17 12:38 | HHI.DS ---
Discharge Summary Admission Date Aug 14, 2016 at 10:23 Admitting Diagnosis PSA, EtOH (1) Intoxication by drug Diagnosis: Principal Plan: Patient admitted for AMS found to be positive for amphetamines, cocaine, and marijuana on UDS at admission. She wishes to go for rehab on discharge. will see what resources are available for her. Patient also reports that at the time of substance abuse ingestion she was trying to harm herself. -CT head: WNL -UDS: Positive for marijuana, cocaine, and amphetamines plus alcohol -Lactic acid: 2.1, repeat 0.6 -CK: normal -Ammonia: 34 -Avoid Beta Blockers with cocaine use -Fall precautions -Seizure precautions -Neuro checks Q4H Medications: -NS at 140 with KCl, can heplock since she is more alert -Psychiatry consulted, appreciate recommendations Patient does not meet criteria for psychiatric admission Extensive support, motivation, and psychological education provided. (2) Alcohol intoxication Diagnosis: Principal Plan: Patient admitted for AMS found to have an alcohol level of 173 on admission. -CT head: WNL -Alcohol: 173 -Ammonia: 34 -CIWA protocol, scores ranging from 0-12 over the last 24 hours with 2 mg of Ativan administered as well as 2 mg of Haldol for agitation. -Fall precautions -Seizure precautions -Neuro checks Q4H Medications: -IV rally pack -NS at 140 with KCl -Ativan per CIWA -Haldol for agitation (3) UTI (urinary tract infection) Diagnosis: Principal Plan: Patient with UA concerning for UTI. On prior ER visit found to have untreated E. coli ESBL infection. Of note patient has penicillin allergy. -UA: cloudy, moderate occult blood, positive nitrite, leukocyte esterase negative, 24 RBC, many bacteria, few mucus -UC: ESBL Escherichia coli sensitive to Invanz -Previous UC 07/12: ESBL E. coli sensitive to ertapenem, imipenem, gentamicin, zosyn, augmentin, and tobramycin Medications: -NS at 140 with KCl, she is drinking fluids so will heplock -Invanz 1 g every 24 hours -Infectious Disease consulted, appreciate recommendations -Renal ultrasound: Stable right renal scar, no acute finding -Abdominal pelvis CT: Pending (4) Nutrition, metabolism, and development symptoms Diagnosis: Principal Plan: Fluids: NS at 140 with KCl, heplock Electrolytes: Hypokalemic initially Diet:regular Prophylaxis: CIWA protocol, Albuterol PRN SOB, Tessalon PRN cough, Imodium PRN diarrhea, Pericolace PRN constipation, Hydroxyzine PRN insomnia, Zofran PRN N/V , Clonidine PRN for BP >180/100 (5) No contraindication to deep vein thrombosis (DVT) prophylaxis Diagnosis: Principal Plan: -Lovenox 40mg QD -SCD/TEDs Brief History Ms. Drake is a 36 y/o F with a history of bipolar disease and alcohol abuse presenting via EMS for AMS. Per EMS, patient walked into a fitness center this morning and did not know where she was. The fitness center staff called EMS and she was unresponsive on arrival. At the scene her BG was 103 with normal vital signs. Upon evaluation of both the ER staff and the admitting medical team she was unresponsive to verbal, tactile, and painful stimulation. Her vital signs are currently WNL. Of note on laboratory evaluation patient found to be positive for amphetamines, cocaine, and marijuana with an alcohol of 173. She also appears to have a continued UTI from a previous ER visit for flank pain. Prior culture positive for ESBL E. coli on 07/13/15 and received only one dose of Ceftriaxone. She was more alert and conversant last pm when I saw her and this morning was able to give more history. She is a [place] ute who moved here a month or so ago and reports finding employment in that time. She stated that her cousin of a heroin overdose less than a week ago and she was trying to drink herself into oblivion recently. She stated she is depressed but not currently suicidal. She drinks a "half gallon or whole gallon per day of whatever is cheapest like whiskey". Her past hospitalizations have been in [facility] and she reports doing well on seroquel and trazadone in the past. She has not been taking her meds recently at all. She does want to quit drinking and wishes a safe place to help her quit drinking when she leaves the hospital. CBC/BMP: 08/17/16 0745 08/17/16 0745 Significant Findings Laboratory Tests Test 08/14/16 08/15/16 08/16/16 08/17/16 21:35 06:00 05:15 07:45 Chloride Level 111 MEQ/L 108 MEQ/L (98-107) (98-107) Carbon Dioxide Level 19.0 MEQ/L (21.0-32.0) Calcium Level 7.2 MG/DL 7.8 MG/DL 8.2 MG/DL 8.4 MG/DL (8.5-10.1) (8.5-10.1) (8.5-10.1) (8.5-10.1) Protein Corrected Calcium 7.7 MG/DL (8.5-10.1) Total Protein 6.1 GM/DL 6.1 GM/DL (6.4-8.2) (6.4-8.2) Red Blood Count 3.80 MIL/MM3 3.90 MIL/MM3 (4.00-5.30) (4.00-5.30) Hematocrit 34.7 % (35.0-46.0) Neutrophils (%) (Auto) 73.3 % (16.0-70.0) Aspartate Amino Transf 11 U/L (15-37) (AST/SGOT) Albumin 2.9 GM/DL (3.4-5.0) Estimat Glomerular Filtration 85 ML/MIN (>89) Rate PE at Discharge GENERAL: Well-nourished, well-developed 36-year-old female lying in bed in no acute distress. Patient is sleeping upon entering the room. SKIN: Warm and dry. No rash. Multiple tattoos. HEENT: Atraumatic, normocephalic. No rhinorrhea. No JVD or LAD appreciated. CARDIOVASCULAR: Regular rate and rhythm without obvious murmurs, gallops, or rubs. RESPIRATORY: Clear to auscultation bilaterally. No CRW appreciated. No increased work of breathing. GASTROINTESTINAL: Abdomen soft, non-tender, nondistended with positive bowel sounds. No hepatosplenomegaly appreciated. MUSCULOSKELETAL: No cyanosis or edema. No obvious deformities. NEURO/PSYCH: Patient AAO 3, however was lethargic during interview falling in and out of sleep. Hospital Course Patient was admitted on 08/14 for monitoring s/p polysubstance abuse and alcohol withdrawal. She was placed on that CIWA protocol and administer Ativan per protocol as well as Haldol for agitation. She was also found to have an ESBL Escherichia coli urinary tract infection. She was initially started on gentamicin, however was transitioned to Invanz for antibiotic coverage. On hospital day 3 the patient left AMA. She was previously evaluated by psychiatry during this admission and deemed not harm herself with competency. Per nursing staff, patient understood risks involved with leaving against medical advice. Pt Condition on Discharge: Stable Neil Tejada MD R1 Aug 17, 2016 12:38
[2016-08-17] MEDS ORDERED: QUEtiapine FUMARATE 25 MG TAB PO SCH (21:00)
[2016-08-17] MEDS ORDERED: traZODone HCL 50 MG TAB PO SCH (21:00)
== END 2016-08-17 11:55 | disposition left against medical advice (07) | DRG 894 ==
LOC: NEPE 06:48 → NEDA 10:23 → N04A 13:17
PROVIDERS: ADMIT Family Medicine; ATTEND Family Medicine
DX: F10.129 Alcohol abuse with intoxication, unspecified (principal); N39.0 Urinary tract infection, site not specified; F15.10 Other stimulant abuse, uncomplicated; F14.10 Cocaine abuse, uncomplicated; Y90.6 Blood alcohol level of 120-199 mg/100 ml; F12.10 Cannabis abuse, uncomplicated; B96.20 Unspecified Escherichia coli [E. coli] as the cause of diseases classified elsewhere; E87.6 Hypokalemia; G47.00 Insomnia, unspecified; F31.9 Bipolar disorder, unspecified; F43.10 Post-traumatic stress disorder, unspecified
CPT/HCPCS: 36600; 70450; 71010; 76775; 80048; 80053; 80307; 81001; 82140; 82550; 82805; 83605; 83735; 84100; 84155; 84443; 84703; 85025; 85027; 87040; 87077; 87086; 87186; 93005; 94002; 94150; 95819; 96361; 96365; 96366; 96368; 96375; J0696; J1335; J1580; J1630; J1650; J2060; J2405; J3411; J3480; J7030; J7040; P9612; Q9963

== ENCOUNTER 2016-08-18 19:25 | Emergency (ER) | payer SELFPAY ==
[~2016-08-18] VITALS: Ht 162.6 cm; Wt 80.0 kg
[2016-08-18 19:27] VITALS: BP 189/96; PULSE 121; RESP 18; TEMP 98.6; O2SAT 98
[2016-08-18 20:28] LABS: AUTOMATED NEUTROPHIL # 7.7 TH/MM3 (1.8-7.7); BASOPHIL # 0.1 TH/MM3 (0-0.2); BASOPHIL % 1.2 % (0.0-2.0); EOSINOPHIL # 0.1 TH/MM3 (0-0.4); EOSINOPHIL % 1.1 % (0.0-4.0); HEMATOCRIT 38.6 % (35.0-46.0); HEMO FLAGS DIFF FINAL; LYMPH % 24.2 % (9.0-44.0); LYMPHOCYTE # 2.8 TH/MM3 (1.0-4.8); MEAN CELL VOLUME 89.8 FL (80.0-100.0); MEAN CORPUSCULAR HEMOGLOBIN 31.6 PG (27.0-34.0); MEAN CORPUSCULAR HGB CONC 35.1 % (32.0-36.0); NEUT % 66.5 % (16.0-70.0); PLATELET COUNT 242 TH/MM3 (150-450); RED BLOOD COUNT 4.29 MIL/MM3 (4.00-5.30); RED CELL DISTRIBUTION WIDTH 13.4 % (11.6-17.2); WHITE BLOOD COUNT 11.6 TH/MM3 (4.0-11.0)
--- NOTE | 2016-08-18 20:45 | RADRPT ---
EXAM DATE/TIME: 08/18/2016 20:20 [place] COMPARISON: No previous studies available for comparison. INDICATIONS : Cough, chest pain for 4 days MEDICAL HISTORY : None. SURGICAL HISTORY : None. ENCOUNTER: Initial ACUITY: 4 - 6 days PAIN SCORE: 10/10 LOCATION: Bilateral chest FINDINGS: PA and lateral views of the chest demonstrate the lungs to be symmetrically aerated without evidence of mass, infiltrate or effusion. The cardiomediastinal contours are unremarkable. Osseous structure s are intact. CONCLUSION: Normal examination. Ran Balbuena Jr., MD on August 18, 2016 at 20:43 Board Certified Radiologist. This report was verified electronically.
[2016-08-18 20:48] LABS: ANION GAP 10 MEQ/L (5-15); BLOOD UREA NITROGEN 15 MG/DL (7-18); CHLORIDE 103 MEQ/L (98-107); GLOMERULAR FILTRATION RATE 60 ML/MIN (>89); POTASSIUM 3.4 MEQ/L (3.5-5.1); SODIUM (NA) 139 MEQ/L (136-145)
[2016-08-18 20:58] LABS: BACTERIA, URINE MOD /hpf; BLOOD, URINE NEG (NEG); GLUCOSE,URINE NEG (NEG); HYALINE CAST, URINE 3 /lpf (RARE); KETONE, URINE NEG (NEG); MUCUS URINE FEW /lpf (OCC); NITRITE,URINE NEG (NEG); SQUAMOUS EPITHELIAL CELL URINE 8 /hpf (0-5); URINE COLOR YELLOW (YELLW/STRAW)
[2016-08-18 20:59] LABS: COMMENT (UR) CULTURE INDICATED; CULTURE IF INDICATED CULTURE INDICATED
[2016-08-18 21:01] LABS: CREATINE KINASE 60 U/L (26-192)
[2016-08-18] MEDS ORDERED: NITROFURANTOIN MONOHYD MACROCR 100 MG CAP PO ONE (23:30)
[2016-08-18] MEDS ORDERED: KETOROLAC TROMETHAMINE 30 MG/ML (IVP) VIAL IV PUSH ONE (23:30)
[2016-08-18 23:43] VITALS: BP 134/92; PULSE 92; RESP 18; O2SAT 98
[2016-08-18] MEDS ORDERED: SODIUM CHLOR 0.9% 1000 ML INJ 1,000 ML IV ONE (23:45)
[2016-08-19] MEDS ORDERED: POTASSIUM CHLORIDE 25 MEQ EFFERVESCENT TAB PO ONE (00:45)
--- NOTE | 2016-08-19 01:30 | PD ---
HPI Chief Complaint: Chest Pain Time Seen by Provider: 23:29 Travel History International Travel<30 days: No Contact w/Intl Traveler<30days: No Traveled to known affect area: No History of Present Illness HPI 36-year-old female came to the emergency room with history of multiple unrelated complaints. This included chest pain, dizziness, abdominal pain, nausea, generalized body aches. She says her chest pain is on the left side of her chest and has been there continuously for a day and a half. Patient was admitted in the hospital for hyperkalemia and she left AMA yesterday and she is back here today because of these complains. There was a workup initiated prior to me seeing this patient and blood test results were back by the time I went to see her. Troponin was negative and potassium was slightly low. Vital signs were stable. Patient is here for 5 weeks from [place] and she has already been 3-4 times in the emergency room. Last time when she was here she was intoxicated with polysubstance abuse. [facility] Past Medical History Narrative Medical List of her past medical, surgical, social and family history was reviewed from the nursing note. Cardiovascular Problems: No Diminished Hearing: No Endocrine: No Genitourinary: Yes Musculoskeletal: No Neurologic: No Respiratory: No Immunizations Current: No ?: Not LMP: 07/28/16 : 3 Para: 3 Past Surgical History Appendectomy: Yes Section: Yes (X 3) Cholecystectomy: Yes Genitourinary Surgery: Yes (BLADDER REPAIR) Social History Alcohol Use: No (UNKNOWN) Tobacco Use: No Substance Use: Yes Allergies-Medications (Allergen,Severity, Reaction): Coded Allergies: Contrast Media (Verified Allergy, Severe, Tachycardia, 08/18/16) Penicillin (Verified Allergy, Unknown, Rash, 08/18/16) Has tolerated Keflex in the past *MDRO Multi-Drug Resistant Organism (Verified Adverse Reaction, Unknown, ) ESBL E.Coli (urine)-07/12/16 & 08/14/16 Comments List of her allergies reviewed from the nursing note. Reported Meds & Prescriptions Reported Meds & Active Scripts Active Macrobid (Nitrofurantoin Monoh/Nitrofur Macro) 100 Mg Cap 100 Mg PO BID 10 Days Narrative Medication List of her home medications reviewed from the nursing note. Review of Systems Except as stated in HPI: all other systems reviewed are Neg Physical Exam Narrative GENERAL: Awake, alert, moderate distress SKIN: Focused skin assessment warm/dry. HEAD: Atraumatic. Normocephalic. EYES: Pupils equal and round. No scleral icterus. No injection or drainage. ENT: No nasal bleeding or discharge. Mucous membranes pink and moist. NECK: Trachea midline. No JVD. CARDIOVASCULAR: Regular rate and rhythm. No murmur appreciated. RESPIRATORY: No accessory muscle use. Clear to auscultation. Breath sounds equal bilaterally. GASTROINTESTINAL: Abdomen soft, non-tender, nondistended. Hepatic and splenic margins not palpable. MUSCULOSKELETAL: No obvious deformities. No clubbing. No cyanosis. No edema. NEUROLOGICAL: Awake and alert. No obvious cranial nerve deficits. Motor grossly within normal limits. Normal speech. PSYCHIATRIC: Appropriate mood and affect; insight and judgment normal. Data Data Last Documented VS Orders Electrocardiogram (08/18/16 19:35) Complete Blood Count With Diff (08/18/16 19:35) Basic Metabolic Panel (Bmp) (08/18/16 19:35) Ckmb (Isoenzyme) Profile (08/18/16 19:35) Troponin I (08/18/16 19:35) Iv Access Insert/Monitor (08/18/16 19:35) Ecg Monitoring (08/18/16 19:35) Oxygen Administration (08/18/16 19:35) Oximetry (08/18/16 19:35) Urinalysis - C+S If Indicated (08/18/16 19:35) Ed Urine Pregnancytest Poc (08/18/16 19:35) Chest, Pa & Lat (08/18/16 19:35) Urine Culture (08/18/16 20:15) Ketorolac Inj (Toradol Inj) (08/18/16 23:30) Nitrofurantoin Monohyd Macrocr (Macrobid (08/18/16 23:30) Potassium Chloride Eff (K-Lyte Cl Eff) (08/19/16 09:00) Sodium Chlor 0.9% 1000 Ml Inj (Ns 1000 M (08/18/16 23:45) D-Dimer (08/18/16 23:38) Potassium Chloride Eff (K-Lyte Cl Eff) (08/19/16 00:45) Labs Laboratory Tests Test 08/18/16 23:51 D-Dimer Quantitative (PE/DVT) 0.39 MG/L [facility] Medical Decision Making Medical Screen Exam Complete: Yes Emergency Medical Condition: Yes Medical Record Reviewed: Yes Differential Diagnosis Electrolyte abnormality Narrative Course 1:39 AM patient was given by mouth potassium replacement. I ordered a d-dimer because she described her chest pain to be pleuritic in nature to some extent. D-dimer is negative. She is low risk for PE and I am comfortable with that test result. I will discharge her home at this point. Her UA was positive and when I looked at her previous culture result she had UTI positive for Escherichia coli that was resistant to ciprofloxacin and patient says that she was treated with Cipro. I've given her dose of Macrobid and she'll go home on Macrobid. Procedures EKG Prior to Arrival: No Diagnosis Primary Impression: Atypical chest pain Additional Impression: UTI (urinary tract infection) Qualified Code: N39.0 - Urinary tract infection without hematuria, site unspecified Additional Instructions: Return to the ER if the condition worsens or any other new concerns. Otherwise follow-up with your primary care. Med/Other Pt SpecificInfo: Prescription(s) given, No Change to Meds Scripts Nitrofurantoin Monohydrate Macrocrystals (Macrobid)100 Mg [id number] Mg PO BID 10 Days Ref 0 Prov:Milka Haywood MD 08/19/16 Disposition: 01 DISCHARGE HOME Condition: Stable Milka Haywood MD Aug 19, 2016 01:30 Eosinophils # (Auto) 0.1 TH/MM3 Basophils # (Auto) 0.1 TH/MM3 CBC Comment DIFF FINAL Differential Comment Sodium Level 139 MEQ/L Potassium Level 3.4 MEQ/L Chloride Level 103 MEQ/L Carbon Dioxide Level 26.0 MEQ/L Anion Gap 10 MEQ/L Blood Urea Nitrogen 15 MG/DL Creatinine 1.04 MG/DL Estimat Glomerular Filtration 60 ML/MIN Rate Random Glucose 94 MG/DL Calcium Level 9.1 MG/DL Total Creatine Kinase 60 U/L Troponin I LESS THAN 0.02 NG/ML Urine Color YELLOW Urine Turbidity HAZY Urine pH 6.0 Urine Specific [place] 1.029 Urine Protein TRACE mg/dL Urine Glucose (UA) NEG mg/dL Urine Ketones NEG mg/dL Urine Occult Blood NEG Urine Nitrite NEG Urine Bilirubin NEG Urine Urobilinogen LESS THAN 2.0 MG/DL Urine Leukocyte Esterase NEG Urine RBC 3 /hpf Urine WBC 2 /hpf Urine Squamous Epithelial 8 /hpf Cells Urine Bacteria MOD /hpf Urine Hyaline Casts 3 /lpf Urine Mucus FEW /lpf Microscopic Urinalysis Comment CULTURE INDICATED D-Dimer Quantitative (PE/DVT) 0.39 MG/L [facility] Medical Decision Making Medical Screen Exam Complete: Yes Emergency Medical Condition: Yes Medical Record Reviewed: Yes Differential Diagnosis Electrolyte abnormality Narrative Course 1:39 AM patient was given by mouth potassium replacement. I ordered a d-dimer because she described her chest pain to be pleuritic in nature to some extent. D-dimer is negative. She is low risk for PE and I am comfortable with that test result. I will discharge her home at this point. Her UA was positive and when I looked at her previous culture result she had UTI positive for Escherichia coli that was resistant to ciprofloxacin and patient says that she was treated with Cipro. I've given her dose of Macrobid and she'll go home on Macrobid. Procedures EKG Prior to Arrival: No Diagnosis Primary Impression: Atypical chest pain Additional Impression: UTI (urinary tract infection) Qualified Code: N39.0 - Urinary tract infection without hematuria, site unspecified Additional Instructions: Return to the ER if the condition worsens or any other new concerns. Otherwise follow-up with your primary care. Med/Other Pt SpecificInfo: Prescription(s) given, No Change to Meds Scripts Nitrofurantoin Monohydrate Macrocrystals (Macrobid)100 Mg [id number] Mg PO BID 10 Days Ref 0 Prov:Milka Haywood MD 08/19/16 Disposition: DISCHARGE HOME Condition: Serious Milka Haywood MD Aug 19, 2016 01:30
[2016-08-19] MEDS ORDERED: MACR100C2 PO (01:58)
[2016-08-19] MEDS ORDERED: POTASSIUM CHLORIDE 25 MEQ EFFERVESCENT TAB NG SCH (09:00)
--- NOTE | 2016-08-19 12:04 | EKG ---
Date Performed: 08/18/2016 Time Performed: 19:41:47 PTAGE: 36 years EKG: SINUS TACHYCARDIA NONSPECIFIC S-T-WAVE ABNORMALITY Since previous tracing, no significant c hange noted ABNORMAL RHYTHM ECG PREVIOUS TRACING : 08/14/2016 07.22 DOCTOR: Neri Robert Interpretating Date/Time 08/19/2016 12:04:11
== END 2016-08-19 03:36 | disposition home or self-care (01) ==
LOC: NEPC 19:25
DX: R07.89 Other chest pain (principal); N39.0 Urinary tract infection, site not specified; B96.89 Other specified bacterial agents as the cause of diseases classified elsewhere; R42 Dizziness and giddiness
CPT/HCPCS: 71020; 80048; 81001; 82550; 84484; 84703; 85025; 85379; 87086; 93005; 96361; 96374; 99285; J1885; J7030